=== PATIENT | male | born 1940 | race Caucasian/White ===

== ENCOUNTER 2017-03-22 10:38 | Inpatient (IN) | payer OTHER, MEDICARE, BC ==
[~2017-03-22] VITALS: Ht 177.8 cm; Wt 69.3 kg
[~2017-03-22 10:38] MED LIST: ASPI-1265 PO; COU5T PO; ENAL2.5T40 PO; METF500T PO; METF500T4 PO; NOR5T PO; PRAV40TA65 PO; WARF5TAB7 PO
[2017-03-22 11:19] LABS: BASOPHILS % (AUTO) 0.3 % (0-1); EOSINOPHILS # (AUTO) 0.3 X10'3 (0-0.9); EOSINOPHILS % (AUTO) 3.3 % (0-6); HEMATOCRIT 41.6 % (42.0-52.0); HEMOGLOBIN 13.8 g/dl (14.0-17.9); LYMPHOCYTES # (AUTO) 0.6 X10'3 (1.1-4.8); LYMPHOCYTES % (AUTO) 7.4 % (21-51); MEAN CORPUSCULAR HEMOGLOBIN 30.6 PG (27.0-31.0); MEAN CORPUSCULAR HGB CONC 33.1 % (33.0-36.5); MEAN CORPUSCULAR VOLUME 92.3 FL (78-98); MEAN PLATELET VOLUME 9.1 FL (7.4-10.4); MONOCYTES # (AUTO) 0.6 X10'3 (0-0.9); MONOCYTES % (AUTO) 6.7 % (2-12); NEUTROPHILS # (AUTO) 6.9 X10'3 (1.8-7.7); NEUTROPHILS % (AUTO) 82.3 % (42-75); PLATELET COUNT 203 X10'3 (140-440); RED BLOOD COUNT 4.51 X10'6 (4.70-6.10); RED CELL DISTRIBUTION WIDTH 16.5 % (11.5-14.5); WHITE BLOOD COUNT 8.4 X10'3 (4.5-11.0)
[2017-03-22 11:29] LABS: INR 1.6 INR; PARTIAL THROMBOPLASTIN TIME 27 SECONDS (22-32); PROTHROMBIN TIME 16.3 SECONDS (9.0-12.0)
[2017-03-22 11:34] LABS: ALANINE AMINOTRANSFERASE 47 U/L (12-78); ALBUMIN 3.7 G/DL (3.4-5.0); ALBUMIN/GLOBULIN RATIO 0.9 (1.1-1.5); ALKALINE PHOSPHATASE 75 IU/L (46-116); ANION GAP 10 (8-16); ASPARTATE AMINO TRANSFERASE 30 U/L (10-37); BILIRUBIN,TOTAL 0.8 MG/DL (0.1-1.0); BLOOD UREA NITROGEN 67 MG/DL (7-18); BUN/CREATININE RATIO 23.1 (5.4-32.0); CALCIUM 9.5 MG/DL (8.5-10.1); CHLORIDE 107 MMOL/L (99-107); GLUCOSE 120 MG/DL (70-104); POTASSIUM 4.5 MMOL/L (3.5-5.1); SODIUM 143 MMOL/L (135-145); TOTAL CARBON DIOXIDE 26.3 MMOL/L (24-32); TOTAL PROTEIN 7.6 G/DL (6.4-8.2); eGFR 21 ML/MIN
[2017-03-22 12:23] LABS: CLARITY,URINE CLEAR (Clear); COLOR,URINE STRAW (Yellow); GLUCOSE, URINE NEGATIVE (Neg); KETONES,URINE NEGATIVE (Neg); LEUKOCYTE ESTERASE ,URINE NEGATIVE (Neg); NITRITES, URINE NEGATIVE (Neg); OCCULT BLOOD,URINE SMALL (Neg); PROTEIN,URINE TRACE mg/dl (Neg); UROBILINOGEN,URINE 0.2 E.U/dL (0.2-1.0)
[2017-03-22 12:25] LABS: UA COLLECTION TYPE URINAL
[2017-03-22] MEDS ORDERED: heparin 10,000 units/1 ML INJ IV ONE (12:25)
[2017-03-22] MEDS ORDERED: aspirin 81mg tab.chew PO ONE (12:25)
[2017-03-22 12:37] LABS: BACTERIA,URINE FEW /HPF (Neg); RBC,URINE 0-2 /HPF (0-2); SQUAMOUS EPITHELIAL CELL,UR FEW /LPF (FEW); WBC,URINE 0-4 /HPF (0-4)
[2017-03-22 12:38] LABS: MUCUS STRANDS FEW /LPF (Neg)
[2017-03-22] MEDS ORDERED: hydrALAZINE 20mg/ml inj. IV ONE (13:05)
[2017-03-22 13:06] LABS: CHOL/HDL RATIO 2.7 (0.00-4.99); CHOLESTEROL 111 MG/DL (0-200); HDL CHOLESTEROL 41 MG/DL (35-60); LDL CHOLESTEROL 55 MG/DL (50-100); MAGNESIUM 1.9 MG/DL (1.5-2.4); TRIGLYCERIDES 177 MG/DL (20-135)
[2017-03-22 14:33] LABS: OCCULT BLOOD STOOL NEGATIVE (Neg)
[2017-03-22] MEDS ORDERED: sodium bicarbonate (8.4%) inj. 50 MEQ in sodium chloride 0.45% 950 ML IV SCH (15:01)
[2017-03-22] MEDS ORDERED: dextrose ORAL solution 15 GM/59 ML bottle PO PRN ×2 (15:05)
[2017-03-22] MEDS ORDERED: mag hydrox/Alum hydrox/simeth 30ml oral suspension PO PRN (15:05)
[2017-03-22] MEDS ORDERED: magnesium Cl slow-release 64mg tablet PO PRN (15:05)
[2017-03-22] MEDS ORDERED: ondansetron/PF 4mg/2ml inj IV PRN (15:05)
[2017-03-22] MEDS ORDERED: morphine 2 MG/ML inj. syringe IV PRN ×2 (15:05)
[2017-03-22] MEDS ORDERED: potassium Cl 20 mEq SR tablet PO PRN ×2 (15:05)
[2017-03-22] MEDS ORDERED: acetaminophen 325mg tablet PO PRN (15:05)
[2017-03-22] MEDS ORDERED: dextrose 50%-water 50ml dispensing syringe IV PRN ×2 (15:05)
[2017-03-22] MEDS ORDERED: magnesium 4gm in 100ml NS 100 ML IV PRN (15:05)
[2017-03-22] MEDS ORDERED: magnesium 2GM in 50ml NS 50 ML IV PRN (15:05)
[2017-03-22] MEDS ORDERED: acetylcysteine 200 MG/ml 4ml vial PO SCH (15:05)
[2017-03-22] MEDS ORDERED: insulin Lispro (HumaLOG) vial - multi-dose SQ SCH (15:05)
[2017-03-22] MEDS ORDERED: magnesium hydroxide 30ml (MOM) UD suspension PO PRN (15:05)
[2017-03-22] MEDS ORDERED: glucagon, human recombinant 1mg kit SUBCUT PRN (15:05)
[2017-03-22] MEDS ORDERED: MESSAGE TO PHARMACY PO ONE (15:05)
[2017-03-22] MEDS ORDERED: potassium Cl 40MEQ/NS 500ml 500 ML IV PRN ×2 (15:05)
[2017-03-22 15:49] LABS: HEMOGLOBIN A1C 6.3 % (4.5-6.2)
[2017-03-22] MEDS ORDERED: FURO40TA4 (17:13)
[2017-03-22] MEDS ORDERED: PRAV20TA4 (17:13)
[2017-03-22] MEDS ORDERED: SPIR25TA3 (17:13)
[2017-03-22] MEDS ORDERED: LISI10TA4 (17:13)
[2017-03-22] MEDS ORDERED: CARV3.123 (17:13)
[2017-03-22] MEDS: tirofiban 5mg in NS 100mL 100 ML IV SCH (17:24)
[2017-03-22] MEDS ORDERED: furosemide 40mg/4ml inj IV ONE (17:55)
[2017-03-22] MEDS: sodium bicarbonate (8.4%) inj. 50 MEQ in sodium chloride 0.45% 1,000 ML IV SCH (18:30)
[2017-03-22 19:00] VITALS: BP 177/107
[2017-03-22] MEDS: DOBUTamine-DoBUTrex 500mg/D5W 250 ML IV SCH (19:02)
[2017-03-22 20:00] VITALS: BP 190/73
[2017-03-22] MEDS ORDERED: heparin 10,000 units/1 ML INJ IV PRN (20:25)
[2017-03-22 21:00] VITALS: BP 141/43
[2017-03-22] MEDS: insulin glargine (Lantus) pen - multi-dose SQ SCH (21:00)
[2017-03-22] MEDS ORDERED: temazepam 15mg capsule PO PRN (21:00)
[2017-03-22] MEDS: furosemide 40mg/4ml inj IV SCH (21:02)
[2017-03-22] MEDS: carVEDilol 3.125mg tablet PO SCH (21:02)
[2017-03-22 22:00] VITALS: BP 133/65
[2017-03-22 23:00] VITALS: BP 114/101
[2017-03-23] VITALS (17 sets, daily range): BP systolic 104–169; BP diastolic 46–98
[2017-03-23] MEDS: tirofiban 5mg in NS 100mL 100 ML IV SCH ×3 (01:04→16:52)
[2017-03-23 03:49] LABS: INR 1.3 INR; PARTIAL THROMBOPLASTIN TIME 53 SECONDS (22-32); PROTHROMBIN TIME 13.8 SECONDS (9.0-12.0)
[2017-03-23 06:18] LABS: BASOPHILS # (AUTO) 0.1 X10'3 (0-0.2); BASOPHILS % (AUTO) 0.8 % (0-1); EOSINOPHILS # (AUTO) 0.1 X10'3 (0-0.9); EOSINOPHILS % (AUTO) 1.6 % (0-6); HEMATOCRIT 42.2 % (42.0-52.0); HEMOGLOBIN 14.2 g/dl (14.0-17.9); LYMPHOCYTES # (AUTO) 0.8 X10'3 (1.1-4.8); LYMPHOCYTES % (AUTO) 8.5 % (21-51); MEAN CORPUSCULAR HEMOGLOBIN 30.7 PG (27.0-31.0); MEAN CORPUSCULAR HGB CONC 33.7 % (33.0-36.5); MEAN CORPUSCULAR VOLUME 91.2 FL (78-98); MEAN PLATELET VOLUME 11.1 FL (7.4-10.4); MONOCYTES # (AUTO) 0.9 X10'3 (0-0.9); MONOCYTES % (AUTO) 9.8 % (2-12); NEUTROPHILS # (AUTO) 7.2 X10'3 (1.8-7.7); NEUTROPHILS % (AUTO) 79.3 % (42-75); PLATELET COUNT 180 X10'3 (140-440); RED BLOOD COUNT 4.63 X10'6 (4.70-6.10); RED CELL DISTRIBUTION WIDTH 15.7 % (11.5-14.5); WHITE BLOOD COUNT 9.1 X10'3 (4.5-11.0)
[2017-03-23] MEDS: furosemide 40mg/4ml inj IV SCH ×2 (07:45→22:27)
[2017-03-23] MEDS: lisinopril 2.5mg tablet PO SCH (07:45)
[2017-03-23] MEDS: pravastatin 40mg tablet PO SCH (07:46)
[2017-03-23] MEDS: aspirin 325mg tablet PO SCH (07:46)
[2017-03-23] MEDS: carVEDilol 3.125mg tablet PO SCH ×2 (07:46→22:27)
[2017-03-23] MEDS: K and/or MAG REPLACEMENT MC SCH (08:00)
[2017-03-23 08:33] LABS: ALANINE AMINOTRANSFERASE 41 U/L (12-78); ALBUMIN 3.6 G/DL (3.4-5.0); ALBUMIN/GLOBULIN RATIO 0.9 (1.1-1.5); ALKALINE PHOSPHATASE 73 IU/L (46-116); ANION GAP 11 (8-16); ASPARTATE AMINO TRANSFERASE 36 U/L (10-37); BILIRUBIN,TOTAL 1.2 MG/DL (0.1-1.0); BLOOD UREA NITROGEN 67 MG/DL (7-18); BUN/CREATININE RATIO 25.8 (5.4-32.0); CALCIUM 9.8 MG/DL (8.5-10.1); CHLORIDE 105 MMOL/L (99-107); CHOL/HDL RATIO 3.2 (0.00-4.99); CHOLESTEROL 127 MG/DL (0-200); GLUCOSE 128 MG/DL (70-104); HDL CHOLESTEROL 40 MG/DL (35-60); LDL CHOLESTEROL 68 MG/DL (50-100); POTASSIUM 5.4 MMOL/L (3.5-5.1); SODIUM 143 MMOL/L (135-145); TOTAL CARBON DIOXIDE 26.6 MMOL/L (24-32); TOTAL PROTEIN 7.5 G/DL (6.4-8.2); TRIGLYCERIDES 130 MG/DL (20-135); eGFR 24 ML/MIN
[2017-03-23] MEDS ORDERED: pneumococcal 23-VAL P-sac vacc 25 mcg/0.5ml vial IMVAC ONE (10:00)
[2017-03-23] MEDS: sodium bicarbonate (8.4%) inj. 50 MEQ in sodium chloride 0.45% 1,000 ML IV SCH (14:55)
[2017-03-23] MEDS: insulin glargine (Lantus) pen - multi-dose SQ SCH (21:00)
[2017-03-24] VITALS (25 sets, daily range): BP systolic 114–201; BP diastolic 47–93
[2017-03-24 00:02] LABS: PARTIAL THROMBOPLASTIN TIME 57 SECONDS (22-32)
[2017-03-24] MEDS: tirofiban 5mg in NS 100mL 100 ML IV SCH ×4 (02:12→17:09)
[2017-03-24 05:26] LABS: BASOPHILS % (AUTO) 0.3 % (0-1); EOSINOPHILS # (AUTO) 0.4 X10'3 (0-0.9); HEMATOCRIT 37.8 % (42.0-52.0); HEMOGLOBIN 12.5 g/dl (14.0-17.9); LYMPHOCYTES # (AUTO) 0.9 X10'3 (1.1-4.8); LYMPHOCYTES % (AUTO) 10.2 % (21-51); MEAN CORPUSCULAR HEMOGLOBIN 30.2 PG (27.0-31.0); MEAN CORPUSCULAR HGB CONC 32.9 % (33.0-36.5); MEAN CORPUSCULAR VOLUME 91.7 FL (78-98); MEAN PLATELET VOLUME 9.3 FL (7.4-10.4); MONOCYTES # (AUTO) 0.7 X10'3 (0-0.9); MONOCYTES % (AUTO) 8.8 % (2-12); NEUTROPHILS # (AUTO) 6.4 X10'3 (1.8-7.7); NEUTROPHILS % (AUTO) 75.7 % (42-75); PLATELET COUNT 195 X10'3 (140-440); RED BLOOD COUNT 4.12 X10'6 (4.70-6.10); RED CELL DISTRIBUTION WIDTH 16.1 % (11.5-14.5); WHITE BLOOD COUNT 8.4 X10'3 (4.5-11.0)
[2017-03-24 06:04] LABS: INR 1.2 INR; PARTIAL THROMBOPLASTIN TIME 60 SECONDS (22-32); PROTHROMBIN TIME 12.4 SECONDS (9.0-12.0)
[2017-03-24 06:14] LABS: ALANINE AMINOTRANSFERASE 27 U/L (12-78); ALBUMIN/GLOBULIN RATIO 0.9 (1.1-1.5); ALKALINE PHOSPHATASE 63 IU/L (46-116); ANION GAP 11 (8-16); ASPARTATE AMINO TRANSFERASE 21 U/L (10-37); BLOOD UREA NITROGEN 64 MG/DL (7-18); BUN/CREATININE RATIO 22.1 (5.4-32.0); CALCIUM 9.2 MG/DL (8.5-10.1); CHLORIDE 104 MMOL/L (99-107); GLUCOSE 134 MG/DL (70-104); MAGNESIUM 1.8 MG/DL (1.5-2.4); POTASSIUM 4.3 MMOL/L (3.5-5.1); SODIUM 140 MMOL/L (135-145); TOTAL CARBON DIOXIDE 25.4 MMOL/L (24-32); TOTAL PROTEIN 6.4 G/DL (6.4-8.2); eGFR 21 ML/MIN
[2017-03-24] MEDS: carVEDilol 3.125mg tablet PO SCH (07:19)
[2017-03-24] MEDS: aspirin 325mg tablet PO SCH (07:19)
[2017-03-24] MEDS: DOBUTamine-DoBUTrex 500mg/D5W 250 ML IV SCH (07:19)
[2017-03-24] MEDS: lisinopril 2.5mg tablet PO SCH (07:19)
[2017-03-24] MEDS: pravastatin 40mg tablet PO SCH (07:19)
[2017-03-24] MEDS: furosemide 40mg/4ml inj IV SCH ×2 (07:20→19:08)
[2017-03-24] MEDS: K and/or MAG REPLACEMENT MC SCH (07:20)
[2017-03-24] MEDS ORDERED: fentaNYL/PF 50MCG/1 ML 2ML syringe ONE (09:02)
[2017-03-24] MEDS ORDERED: heparin 1,000unit/ml 10ml vial 10 ML ONE (09:02)
[2017-03-24] MEDS ORDERED: LIDOcaine 1%/PF (10mg/ml) 5ml vial ONE (09:02)
[2017-03-24] MEDS ORDERED: midazolam 2 mg/2 ml injection ONE (09:02)
[2017-03-24] MEDS ORDERED: nitroGLYCERIN-Tridil 50MG/D5W 250 ML IV ONE (09:02)
[2017-03-24] MEDS ORDERED: iohexol 350MG/ML 100ml bottle IV ONE ×2 (09:02→10:02)
[2017-03-24] MEDS ORDERED: iohexol 350 MG/ML 50ML vial IV ONE (09:02)
[2017-03-24] MEDS ORDERED: pneumococcal 23-VAL P-sac vacc 25 mcg/0.5ml vial IMVAC ONE (10:00)
[2017-03-24] MEDS ORDERED: heparin 1,000 UNITS/NS 500ml 500 ML ONE (10:24)
[2017-03-24] MEDS ORDERED: atropine 0.1mg/ml 10ml syringe ONE (10:40)
[2017-03-24] MEDS ORDERED: clopidogrel 300mg tablet ONE (11:07)
[2017-03-24 11:36] LABS: ISTAT HGB ART 13.3 g/dl (14.0-18.0); ISTAT Hct ART 39 %PCV (42-52); ISTAT O2 SATURATION ARTERIAL 95 % (95-98); ISTAT SOURCE ART
[2017-03-24 11:36] LABS: ISTAT Hct MIX 39 %PCV (42-52); ISTAT O2 SATURATION MIX VENOUS 64 % (60-80); ISTAT SOURCE MIX
[2017-03-24] MEDS: hydrALAZINE 20mg/ml inj. IV PRN (12:05)
[2017-03-24] MEDS ORDERED: lisinopril 10 MG tablet PO SCH (12:22)
[2017-03-24] MEDS: sodium bicarbonate (8.4%) inj. 50 MEQ in sodium chloride 0.45% 1,000 ML IV SCH (12:43)
[2017-03-24 16:13] LABS: CHOL/HDL RATIO 2.8 (0.00-4.99); CHOLESTEROL 103 MG/DL (0-200); HDL CHOLESTEROL 37 MG/DL (35-60); LDL CHOLESTEROL 52 MG/DL (50-100); TRIGLYCERIDES 125 MG/DL (20-135)
[2017-03-24] MEDS: carVEDilol 12.5mg tablet PO SCH (19:08)
[2017-03-24] MEDS ORDERED: atorvastatin 20mg tablet PO SCH (21:00)
[2017-03-24] MEDS: insulin glargine (Lantus) pen - multi-dose SQ SCH (21:00)
[2017-03-25] VITALS (24 sets, daily range): BP systolic 119–166; BP diastolic 53–86
[2017-03-25] MEDS: hydrALAZINE 20mg/ml inj. IV PRN ×2 (03:02→17:02)
[2017-03-25 05:43] LABS: BASOPHILS # (AUTO) 0.1 X10'3 (0-0.2); BASOPHILS % (AUTO) 0.6 % (0-1); EOSINOPHILS # (AUTO) 0.3 X10'3 (0-0.9); EOSINOPHILS % (AUTO) 3.3 % (0-6); HEMATOCRIT 37.4 % (42.0-52.0); HEMOGLOBIN 12.4 g/dl (14.0-17.9); LYMPHOCYTES # (AUTO) 0.6 X10'3 (1.1-4.8); MEAN CORPUSCULAR HEMOGLOBIN 30.5 PG (27.0-31.0); MEAN CORPUSCULAR HGB CONC 33.2 % (33.0-36.5); MEAN PLATELET VOLUME 9.5 FL (7.4-10.4); MONOCYTES # (AUTO) 0.7 X10'3 (0-0.9); NEUTROPHILS # (AUTO) 6.6 X10'3 (1.8-7.7); NEUTROPHILS % (AUTO) 80.1 % (42-75); PLATELET COUNT 200 X10'3 (140-440); RED BLOOD COUNT 4.06 X10'6 (4.70-6.10); RED CELL DISTRIBUTION WIDTH 16.5 % (11.5-14.5); WHITE BLOOD COUNT 8.2 X10'3 (4.5-11.0)
[2017-03-25 05:50] LABS: INR 1.1 INR; PARTIAL THROMBOPLASTIN TIME 26 SECONDS (22-32); PROTHROMBIN TIME 11.6 SECONDS (9.0-12.0)
[2017-03-25 05:57] LABS: ALANINE AMINOTRANSFERASE 30 U/L (12-78); ALBUMIN 3.2 G/DL (3.4-5.0); ALBUMIN/GLOBULIN RATIO 0.9 (1.1-1.5); ALKALINE PHOSPHATASE 66 IU/L (46-116); ANION GAP 12 (8-16); ASPARTATE AMINO TRANSFERASE 90 U/L (10-37); BILIRUBIN,TOTAL 1.2 MG/DL (0.1-1.0); BLOOD UREA NITROGEN 54 MG/DL (7-18); BUN/CREATININE RATIO 22.5 (5.4-32.0); CALCIUM 9.5 MG/DL (8.5-10.1); CHLORIDE 101 MMOL/L (99-107); GLUCOSE 146 MG/DL (70-104); MAGNESIUM 1.8 MG/DL (1.5-2.4); POTASSIUM 3.9 MMOL/L (3.5-5.1); SODIUM 140 MMOL/L (135-145); TOTAL CARBON DIOXIDE 26.7 MMOL/L (24-32); TOTAL PROTEIN 6.7 G/DL (6.4-8.2); eGFR 26 ML/MIN
[2017-03-25] MEDS: K and/or MAG REPLACEMENT MC SCH (06:49)
[2017-03-25] MEDS: carVEDilol 12.5mg tablet PO SCH ×2 (08:00→19:19)
[2017-03-25] MEDS: sacubitril/valsartan 24mg-26mg tablet PO SCH ×2 (08:00→19:20)
[2017-03-25] MEDS: furosemide 40mg/4ml inj IV SCH ×2 (08:22→19:19)
[2017-03-25] MEDS: aspirin 325mg tablet PO SCH (08:27)
[2017-03-25] MEDS: clopidogrel 75mg tablet PO SCH (08:27)
[2017-03-25] MEDS: apixaban 2.5mg tablet PO SCH ×2 (08:27→19:19)
[2017-03-25] MEDS: atorvastatin 20mg tablet PO SCH (08:27)
[2017-03-25] MEDS: sodium bicarbonate (8.4%) inj. 50 MEQ in sodium chloride 0.45% 1,000 ML IV SCH (08:29)
[2017-03-25] MEDS ORDERED: pneumococcal 23-VAL P-sac vacc 25 mcg/0.5ml vial IMVAC ONE (11:00)
[2017-03-25] MEDS: insulin glargine (Lantus) pen - multi-dose SQ SCH (21:00)
[2017-03-26] VITALS (14 sets, daily range): BP systolic 82–153; BP diastolic 46–95
[2017-03-26] MEDS: DOBUTamine-DoBUTrex 500mg/D5W 250 ML IV SCH (01:37)
[2017-03-26 05:34] LABS: BASOPHILS % (AUTO) 0.2 % (0-1); EOSINOPHILS # (AUTO) 0.3 X10'3 (0-0.9); EOSINOPHILS % (AUTO) 3.5 % (0-6); HEMOGLOBIN 12.4 g/dl (14.0-17.9); LYMPHOCYTES # (AUTO) 0.6 X10'3 (1.1-4.8); LYMPHOCYTES % (AUTO) 6.2 % (21-51); MEAN CORPUSCULAR HGB CONC 33.4 % (33.0-36.5); MEAN CORPUSCULAR VOLUME 92.8 FL (78-98); MEAN PLATELET VOLUME 9.6 FL (7.4-10.4); MONOCYTES # (AUTO) 1.2 X10'3 (0-0.9); MONOCYTES % (AUTO) 12.8 % (2-12); NEUTROPHILS # (AUTO) 7.2 X10'3 (1.8-7.7); NEUTROPHILS % (AUTO) 77.3 % (42-75); PLATELET COUNT 195 X10'3 (140-440); RED BLOOD COUNT 3.98 X10'6 (4.70-6.10); RED CELL DISTRIBUTION WIDTH 16.2 % (11.5-14.5); WHITE BLOOD COUNT 9.3 X10'3 (4.5-11.0)
[2017-03-26 05:52] LABS: ALANINE AMINOTRANSFERASE 33 U/L (12-78); ALBUMIN/GLOBULIN RATIO 0.9 (1.1-1.5); ALKALINE PHOSPHATASE 66 IU/L (46-116); ANION GAP 10 (8-16); ASPARTATE AMINO TRANSFERASE 64 U/L (10-37); BILIRUBIN,TOTAL 1.2 MG/DL (0.1-1.0); BLOOD UREA NITROGEN 57 MG/DL (7-18); CALCIUM 8.9 MG/DL (8.5-10.1); CHLORIDE 101 MMOL/L (99-107); GLUCOSE 147 MG/DL (70-104); MAGNESIUM 2.1 MG/DL (1.5-2.4); POTASSIUM 3.9 MMOL/L (3.5-5.1); SODIUM 139 MMOL/L (135-145); TOTAL CARBON DIOXIDE 28.5 MMOL/L (24-32); TOTAL PROTEIN 6.5 G/DL (6.4-8.2); eGFR 20 ML/MIN
[2017-03-26 05:55] LABS: INR 1.1 INR; PROTHROMBIN TIME 11.8 SECONDS (9.0-12.0)
[2017-03-26] MEDS: sacubitril/valsartan 24mg-26mg tablet PO SCH ×2 (07:59→18:52)
[2017-03-26] MEDS: clopidogrel 75mg tablet PO SCH (07:59)
[2017-03-26] MEDS: carVEDilol 12.5mg tablet PO SCH ×2 (07:59→18:52)
[2017-03-26] MEDS: furosemide 40mg/4ml inj IV SCH (07:59)
[2017-03-26] MEDS: apixaban 2.5mg tablet PO SCH (07:59)
[2017-03-26] MEDS: aspirin 81mg tab.chew PO SCH (07:59)
[2017-03-26] MEDS: atorvastatin 20mg tablet PO SCH (07:59)
[2017-03-26] MEDS: K and/or MAG REPLACEMENT MC SCH (08:00)
[2017-03-26] MEDS: apixaban 5mg tablet PO SCH (18:52)
[2017-03-26] MEDS: insulin glargine (Lantus) pen - multi-dose SQ SCH (21:00)
[2017-03-27] VITALS (12 sets, daily range): BP systolic 111–155; BP diastolic 37–81
[2017-03-27 02:09] LABS: BASOPHILS % (AUTO) 0.6 % (0-1); EOSINOPHILS # (AUTO) 0.3 X10'3 (0-0.9); HEMOGLOBIN 11.4 g/dl (14.0-17.9); LYMPHOCYTES # (AUTO) 0.6 X10'3 (1.1-4.8); LYMPHOCYTES % (AUTO) 8.6 % (21-51); MEAN CORPUSCULAR HEMOGLOBIN 30.7 PG (27.0-31.0); MEAN CORPUSCULAR HGB CONC 32.6 % (33.0-36.5); MEAN CORPUSCULAR VOLUME 93.9 FL (78-98); MEAN PLATELET VOLUME 9.1 FL (7.4-10.4); MONOCYTES # (AUTO) 0.9 X10'3 (0-0.9); MONOCYTES % (AUTO) 12.7 % (2-12); NEUTROPHILS # (AUTO) 5.5 X10'3 (1.8-7.7); NEUTROPHILS % (AUTO) 74.1 % (42-75); PLATELET COUNT 191 X10'3 (140-440); RED BLOOD COUNT 3.73 X10'6 (4.70-6.10); RED CELL DISTRIBUTION WIDTH 16.4 % (11.5-14.5); WHITE BLOOD COUNT 7.4 X10'3 (4.5-11.0)
[2017-03-27 02:22] LABS: INR 1.2 INR
[2017-03-27 02:31] LABS: ALANINE AMINOTRANSFERASE 30 U/L (12-78); ALBUMIN 2.8 G/DL (3.4-5.0); ALBUMIN/GLOBULIN RATIO 0.8 (1.1-1.5); ALKALINE PHOSPHATASE 58 IU/L (46-116); ANION GAP 8 (8-16); ASPARTATE AMINO TRANSFERASE 36 U/L (10-37); BILIRUBIN,TOTAL 1.3 MG/DL (0.1-1.0); BLOOD UREA NITROGEN 67 MG/DL (7-18); BUN/CREATININE RATIO 19.1 (5.4-32.0); CALCIUM 8.7 MG/DL (8.5-10.1); CHLORIDE 101 MMOL/L (99-107); GLUCOSE 156 MG/DL (70-104); MAGNESIUM 2.3 MG/DL (1.5-2.4); POTASSIUM 4.1 MMOL/L (3.5-5.1); SODIUM 137 MMOL/L (135-145); TOTAL PROTEIN 6.2 G/DL (6.4-8.2); eGFR 17 ML/MIN
[2017-03-27] MEDS: K and/or MAG REPLACEMENT MC SCH (06:33)
[2017-03-27] MEDS: atorvastatin 20mg tablet PO SCH (07:36)
[2017-03-27] MEDS: apixaban 5mg tablet PO SCH ×2 (07:37→20:05)
[2017-03-27] MEDS: carVEDilol 12.5mg tablet PO SCH (07:37)
[2017-03-27] MEDS: aspirin 81mg tab.chew PO SCH (07:37)
[2017-03-27] MEDS: clopidogrel 75mg tablet PO SCH (07:37)
[2017-03-27] MEDS: sacubitril/valsartan 24mg-26mg tablet PO SCH ×2 (07:37→20:05)
[2017-03-27] MEDS: DOBUTamine-DoBUTrex 500mg/D5W 250 ML IV SCH ×2 (17:37→20:31)
[2017-03-27] MEDS: carvedilol 6.25mg tablet PO SCH (20:05)
[2017-03-27] MEDS ORDERED: normal saline 1000ml 1,000 ML IV ONE (20:10)
[2017-03-27] MEDS: insulin glargine (Lantus) pen - multi-dose SQ SCH (21:00)
[2017-03-28] VITALS (12 sets, daily range): BP systolic 116–146; BP diastolic 59–84
[2017-03-28 05:25] LABS: BASOPHILS % (AUTO) 0.5 % (0-1); EOSINOPHILS # (AUTO) 0.5 X10'3 (0-0.9); EOSINOPHILS % (AUTO) 6.6 % (0-6); HEMATOCRIT 32.1 % (42.0-52.0); HEMOGLOBIN 10.9 g/dl (14.0-17.9); LYMPHOCYTES # (AUTO) 0.5 X10'3 (1.1-4.8); LYMPHOCYTES % (AUTO) 7.7 % (21-51); MEAN CORPUSCULAR HEMOGLOBIN 31.1 PG (27.0-31.0); MEAN CORPUSCULAR HGB CONC 33.9 % (33.0-36.5); MEAN CORPUSCULAR VOLUME 91.9 FL (78-98); MEAN PLATELET VOLUME 9.2 FL (7.4-10.4); MONOCYTES # (AUTO) 0.7 X10'3 (0-0.9); MONOCYTES % (AUTO) 10.7 % (2-12); NEUTROPHILS # (AUTO) 5.1 X10'3 (1.8-7.7); NEUTROPHILS % (AUTO) 74.5 % (42-75); PLATELET COUNT 178 X10'3 (140-440); RED BLOOD COUNT 3.49 X10'6 (4.70-6.10); WHITE BLOOD COUNT 6.8 X10'3 (4.5-11.0)
[2017-03-28 05:43] LABS: ALANINE AMINOTRANSFERASE 26 U/L (12-78); ALBUMIN 2.6 G/DL (3.4-5.0); ALBUMIN/GLOBULIN RATIO 0.8 (1.1-1.5); ALKALINE PHOSPHATASE 53 IU/L (46-116); ANION GAP 11 (8-16); ASPARTATE AMINO TRANSFERASE 20 U/L (10-37); BILIRUBIN,TOTAL 0.7 MG/DL (0.1-1.0); BLOOD UREA NITROGEN 70 MG/DL (7-18); CALCIUM 8.1 MG/DL (8.5-10.1); CHLORIDE 105 MMOL/L (99-107); GLUCOSE 131 MG/DL (70-104); MAGNESIUM 2.2 MG/DL (1.5-2.4); POTASSIUM 3.8 MMOL/L (3.5-5.1); SODIUM 140 MMOL/L (135-145); TOTAL CARBON DIOXIDE 24.2 MMOL/L (24-32); TOTAL PROTEIN 5.7 G/DL (6.4-8.2); eGFR 22 ML/MIN
[2017-03-28] MEDS: carvedilol 6.25mg tablet PO SCH ×2 (07:34→19:43)
[2017-03-28] MEDS: clopidogrel 75mg tablet PO SCH (07:34)
[2017-03-28] MEDS: sacubitril/valsartan 24mg-26mg tablet PO SCH ×2 (07:34→19:45)
[2017-03-28] MEDS: apixaban 5mg tablet PO SCH ×2 (07:34→19:42)
[2017-03-28] MEDS: atorvastatin 20mg tablet PO SCH (07:34)
[2017-03-28] MEDS: aspirin 81mg tab.chew PO SCH (07:34)
[2017-03-28] MEDS: K and/or MAG REPLACEMENT MC SCH (08:00)
[2017-03-28] MEDS: DOBUTamine-DoBUTrex 500mg/D5W 250 ML IV SCH ×2 (19:45→22:18)
[2017-03-28] MEDS: insulin glargine (Lantus) pen - multi-dose SQ SCH (21:00)
[2017-03-29] VITALS (16 sets, daily range): BP systolic 101–169; BP diastolic 41–90
[2017-03-29] MEDS: hydrALAZINE 20mg/ml inj. IV PRN (02:45)
[2017-03-29 05:24] LABS: MAGNESIUM 2.2 MG/DL (1.5-2.4)
[2017-03-29] MEDS: K and/or MAG REPLACEMENT MC SCH (08:00)
[2017-03-29 08:09] LABS: ANION GAP 11 (8-16); BLOOD UREA NITROGEN 65 MG/DL (7-18); CALCIUM 8.9 MG/DL (8.5-10.1); CHLORIDE 105 MMOL/L (99-107); GLUCOSE 125 MG/DL (70-104); POTASSIUM 4.6 MMOL/L (3.5-5.1); SODIUM 140 MMOL/L (135-145); TOTAL CARBON DIOXIDE 24.4 MMOL/L (24-32); eGFR 25 ML/MIN
[2017-03-29] MEDS: atorvastatin 20mg tablet PO SCH (08:15)
[2017-03-29] MEDS: carvedilol 6.25mg tablet PO SCH ×2 (08:15→20:59)
[2017-03-29] MEDS: clopidogrel 75mg tablet PO SCH (08:16)
[2017-03-29] MEDS: apixaban 5mg tablet PO SCH ×2 (08:16→20:59)
[2017-03-29] MEDS: sacubitril/valsartan 24mg-26mg tablet PO SCH ×2 (08:16→20:59)
[2017-03-29] MEDS: aspirin 81mg tab.chew PO SCH (08:16)
[2017-03-29] MEDS: insulin glargine (Lantus) pen - multi-dose SQ SCH (21:00)
[2017-03-29] MEDS: DOBUTamine-DoBUTrex 500mg/D5W 250 ML IV SCH ×2 (21:53→22:45)
[2017-03-30] VITALS (16 sets, daily range): BP systolic 101–182; BP diastolic 44–90
[2017-03-30 06:04] LABS: ALBUMIN 2.9 G/DL (3.4-5.0); ANION GAP 10 (8-16); BLOOD UREA NITROGEN 59 MG/DL (7-18); BUN/CREATININE RATIO 25.7 (5.4-32.0); CHLORIDE 106 MMOL/L (99-107); GLUCOSE 132 MG/DL (70-104); POTASSIUM 4.5 MMOL/L (3.5-5.1); SODIUM 139 MMOL/L (135-145); eGFR 28 ML/MIN
[2017-03-30] MEDS: carvedilol 6.25mg tablet PO SCH (08:00)
[2017-03-30] MEDS: K and/or MAG REPLACEMENT MC SCH (08:00)
[2017-03-30] MEDS: atorvastatin 20mg tablet PO SCH (09:24)
[2017-03-30] MEDS: apixaban 5mg tablet PO SCH ×2 (09:24→20:58)
[2017-03-30] MEDS: sacubitril/valsartan 24mg-26mg tablet PO SCH ×2 (09:24→20:58)
[2017-03-30] MEDS: aspirin 81mg tab.chew PO SCH (09:24)
[2017-03-30] MEDS: clopidogrel 75mg tablet PO SCH (09:25)
[2017-03-30] MEDS ORDERED: lisinopril 20mg tablet PO SCH (12:05)
[2017-03-30] MEDS ORDERED: hydrALAZINE 20mg/ml inj. IV PRN (16:35)
[2017-03-30] MEDS ORDERED: sacubitril/valsartan 24mg-26mg tablet PO SCH (20:00)
[2017-03-30] MEDS: carVEDilol 3.125mg tablet PO SCH (20:59)
[2017-03-30] MEDS: insulin glargine (Lantus) pen - multi-dose SQ SCH (21:00)
[2017-03-30] MEDS: DOBUTamine-DoBUTrex 500mg/D5W 250 ML IV SCH (22:28)
[2017-03-31] VITALS (13 sets, daily range): BP systolic 109–193; BP diastolic 37–80
[2017-03-31 05:14] LABS: HEMATOCRIT 38.6 % (42.0-52.0); HEMOGLOBIN 12.9 g/dl (14.0-17.9); MEAN CORPUSCULAR HEMOGLOBIN 31.4 PG (27.0-31.0); MEAN CORPUSCULAR HGB CONC 33.4 % (33.0-36.5); MEAN CORPUSCULAR VOLUME 94.1 FL (78-98); PLATELET COUNT 236 X10'3 (140-440); RED CELL DISTRIBUTION WIDTH 15.6 % (11.5-14.5); WHITE BLOOD COUNT 6.9 X10'3 (4.5-11.0)
[2017-03-31 05:46] LABS: ALBUMIN 3.2 G/DL (3.4-5.0); ANION GAP 12 (8-16); BLOOD UREA NITROGEN 61 MG/DL (7-18); BUN/CREATININE RATIO 26.5 (5.4-32.0); CHLORIDE 104 MMOL/L (99-107); GLUCOSE 160 MG/DL (70-104); POTASSIUM 4.6 MMOL/L (3.5-5.1); SODIUM 137 MMOL/L (135-145); TOTAL CARBON DIOXIDE 21.1 MMOL/L (24-32); eGFR 28 ML/MIN
[2017-03-31] MEDS: K and/or MAG REPLACEMENT MC SCH (08:00)
[2017-03-31] MEDS: carVEDilol 3.125mg tablet PO SCH ×2 (08:57→20:56)
[2017-03-31] MEDS: aspirin 81mg tab.chew PO SCH (08:57)
[2017-03-31] MEDS: atorvastatin 20mg tablet PO SCH (08:57)
[2017-03-31] MEDS: sacubitril/valsartan 24mg-26mg tablet PO SCH ×2 (08:57→20:56)
[2017-03-31] MEDS: clopidogrel 75mg tablet PO SCH (08:57)
[2017-03-31] MEDS: apixaban 5mg tablet PO SCH ×2 (08:57→20:56)
[2017-03-31] MEDS: DOBUTamine-DoBUTrex 500mg/D5W 250 ML IV SCH (14:32)
[2017-03-31] MEDS: insulin glargine (Lantus) pen - multi-dose SQ SCH (20:57)
[2017-04-01] VITALS (15 sets, daily range): BP systolic 107–175; BP diastolic 49–82
[2017-04-01] MEDS: DOBUTamine-DoBUTrex 500mg/D5W 250 ML IV SCH (04:06)
[2017-04-01 05:21] LABS: HEMATOCRIT 38.6 % (42.0-52.0); HEMOGLOBIN 13.1 g/dl (14.0-17.9); MEAN CORPUSCULAR HEMOGLOBIN 31.3 PG (27.0-31.0); MEAN CORPUSCULAR HGB CONC 33.9 % (33.0-36.5); MEAN CORPUSCULAR VOLUME 92.2 FL (78-98); MEAN PLATELET VOLUME 8.5 FL (7.4-10.4); PLATELET COUNT 270 X10'3 (140-440); RED BLOOD COUNT 4.18 X10'6 (4.70-6.10); RED CELL DISTRIBUTION WIDTH 15.2 % (11.5-14.5); WHITE BLOOD COUNT 6.8 X10'3 (4.5-11.0)
[2017-04-01] MEDS: K and/or MAG REPLACEMENT MC SCH (08:00)
[2017-04-01] MEDS: apixaban 5mg tablet PO SCH ×2 (08:31→20:24)
[2017-04-01] MEDS: atorvastatin 20mg tablet PO SCH (08:31)
[2017-04-01] MEDS: clopidogrel 75mg tablet PO SCH (08:32)
[2017-04-01] MEDS: sacubitril/valsartan 24mg-26mg tablet PO SCH ×2 (08:32→20:00)
[2017-04-01] MEDS: aspirin 81mg tab.chew PO SCH (08:32)
[2017-04-01] MEDS: carVEDilol 3.125mg tablet PO SCH ×2 (08:32→20:00)
[2017-04-01] MEDS: insulin glargine (Lantus) pen - multi-dose SQ SCH (21:00)
[2017-04-02] VITALS (13 sets, daily range): BP systolic 95–165; BP diastolic 51–99
[2017-04-02 06:13] LABS: GLUCOSE 129 MG/DL (70-104)
[2017-04-02 06:14] LABS: ALBUMIN 3.1 G/DL (3.4-5.0); ANION GAP 10 (8-16); BLOOD UREA NITROGEN 56 MG/DL (7-18); BUN/CREATININE RATIO 25.5 (5.4-32.0); CALCIUM 9.3 MG/DL (8.5-10.1); CHLORIDE 105 MMOL/L (99-107); POTASSIUM 4.7 MMOL/L (3.5-5.1); SODIUM 138 MMOL/L (135-145); TOTAL CARBON DIOXIDE 23.1 MMOL/L (24-32); eGFR 29 ML/MIN
[2017-04-02 06:14] LABS: HEMATOCRIT 38.8 % (42.0-52.0); HEMOGLOBIN 13.3 g/dl (14.0-17.9); MEAN CORPUSCULAR HEMOGLOBIN 31.7 PG (27.0-31.0); MEAN CORPUSCULAR HGB CONC 34.1 % (33.0-36.5); MEAN CORPUSCULAR VOLUME 92.9 FL (78-98); MEAN PLATELET VOLUME 8.8 FL (7.4-10.4); PLATELET COUNT 277 X10'3 (140-440); RED BLOOD COUNT 4.18 X10'6 (4.70-6.10); RED CELL DISTRIBUTION WIDTH 14.9 % (11.5-14.5); WHITE BLOOD COUNT 8.1 X10'3 (4.5-11.0)
[2017-04-02 07:29] LABS: ANION GAP 10 (8-16); BLOOD UREA NITROGEN 55 MG/DL (7-18); CALCIUM 9.2 MG/DL (8.5-10.1); CHLORIDE 104 MMOL/L (99-107); GLUCOSE 127 MG/DL (70-104); POTASSIUM 4.8 MMOL/L (3.5-5.1); SODIUM 138 MMOL/L (135-145); TOTAL CARBON DIOXIDE 23.8 MMOL/L (24-32); eGFR 29 ML/MIN
[2017-04-02] MEDS: K and/or MAG REPLACEMENT MC SCH (08:00)
[2017-04-02] MEDS: clopidogrel 75mg tablet PO SCH (08:35)
[2017-04-02] MEDS: aspirin 81mg tab.chew PO SCH (08:35)
[2017-04-02] MEDS: apixaban 5mg tablet PO SCH ×2 (08:35→21:11)
[2017-04-02] MEDS: sacubitril/valsartan 24mg-26mg tablet PO SCH ×2 (08:35→21:11)
[2017-04-02] MEDS: carVEDilol 3.125mg tablet PO SCH ×2 (08:36→21:11)
[2017-04-02] MEDS: atorvastatin 20mg tablet PO SCH (08:36)
[2017-04-02] MEDS: insulin glargine (Lantus) pen - multi-dose SQ SCH (21:00)
[2017-04-03] VITALS (7 sets, daily range): BP systolic 106–174; BP diastolic 50–81
[2017-04-03 05:38] LABS: HEMOGLOBIN 12.5 g/dl (14.0-17.9); MEAN CORPUSCULAR HEMOGLOBIN 31.2 PG (27.0-31.0); MEAN CORPUSCULAR HGB CONC 33.8 % (33.0-36.5); MEAN CORPUSCULAR VOLUME 92.5 FL (78-98); PLATELET COUNT 273 X10'3 (140-440); RED CELL DISTRIBUTION WIDTH 14.8 % (11.5-14.5); WHITE BLOOD COUNT 9.5 X10'3 (4.5-11.0)
[2017-04-03 06:00] LABS: ANION GAP 12 (8-16); BLOOD UREA NITROGEN 58 MG/DL (7-18); BUN/CREATININE RATIO 27.6 (5.4-32.0); CALCIUM 9.3 MG/DL (8.5-10.1); CHLORIDE 103 MMOL/L (99-107); GLUCOSE 122 MG/DL (70-104); POTASSIUM 4.5 MMOL/L (3.5-5.1); SODIUM 136 MMOL/L (135-145); TOTAL CARBON DIOXIDE 21.2 MMOL/L (24-32); eGFR 31 ML/MIN
[2017-04-03] MEDS ORDERED: ALLO100T15 (07:21)
[2017-04-03] MEDS: K and/or MAG REPLACEMENT MC SCH (08:00)
[2017-04-03] MEDS: clopidogrel 75mg tablet PO SCH (08:46)
[2017-04-03] MEDS: sacubitril/valsartan 24mg-26mg tablet PO SCH ×2 (08:46→19:16)
[2017-04-03] MEDS: carVEDilol 3.125mg tablet PO SCH ×2 (08:47→19:16)
[2017-04-03] MEDS: atorvastatin 20mg tablet PO SCH (08:48)
[2017-04-03] MEDS: apixaban 5mg tablet PO SCH ×2 (08:48→19:16)
[2017-04-03] MEDS: aspirin 81mg tab.chew PO SCH (08:48)
[2017-04-03] MEDS: insulin glargine (Lantus) pen - multi-dose SQ SCH (21:00)
[2017-04-04] VITALS: BP 135/74
[2017-04-04 05:29] LABS: HEMATOCRIT 37.4 % (42.0-52.0); HEMOGLOBIN 12.9 g/dl (14.0-17.9); MEAN CORPUSCULAR HEMOGLOBIN 31.9 PG (27.0-31.0); MEAN CORPUSCULAR HGB CONC 34.5 % (33.0-36.5); MEAN CORPUSCULAR VOLUME 92.6 FL (78-98); MEAN PLATELET VOLUME 8.8 FL (7.4-10.4); PLATELET COUNT 276 X10'3 (140-440); RED BLOOD COUNT 4.04 X10'6 (4.70-6.10); RED CELL DISTRIBUTION WIDTH 15.3 % (11.5-14.5); WHITE BLOOD COUNT 9.8 X10'3 (4.5-11.0)
[2017-04-04 06:02] LABS: ALBUMIN 3.1 G/DL (3.4-5.0); ANION GAP 10 (8-16); BLOOD UREA NITROGEN 66 MG/DL (7-18); BUN/CREATININE RATIO 31.4 (5.4-32.0); CALCIUM 9.5 MG/DL (8.5-10.1); CHLORIDE 102 MMOL/L (99-107); GLUCOSE 131 MG/DL (70-104); POTASSIUM 4.7 MMOL/L (3.5-5.1); SODIUM 136 MMOL/L (135-145); TOTAL CARBON DIOXIDE 24.4 MMOL/L (24-32); eGFR 31 ML/MIN
[2017-04-04 08:00] VITALS: BP 147/78
[2017-04-04] MEDS: atorvastatin 20mg tablet PO SCH (08:00)
[2017-04-04] MEDS: apixaban 5mg tablet PO SCH ×2 (08:00→19:47)
[2017-04-04] MEDS: K and/or MAG REPLACEMENT MC SCH (08:00)
[2017-04-04] MEDS: sacubitril/valsartan 24mg-26mg tablet PO SCH ×2 (08:00→19:47)
[2017-04-04] MEDS: clopidogrel 75mg tablet PO SCH (08:00)
[2017-04-04] MEDS: carVEDilol 3.125mg tablet PO SCH ×2 (08:00→19:47)
[2017-04-04] MEDS: aspirin 81mg tab.chew PO SCH (08:30)
[2017-04-04 11:00] VITALS: BP 100/61
[2017-04-04 20:00] VITALS: BP 111/64
[2017-04-04] MEDS: insulin glargine (Lantus) pen - multi-dose SQ SCH (21:00)
[2017-04-05] MEDS: apixaban 5mg tablet PO SCH ×2 (07:53→23:06)
[2017-04-05] MEDS: aspirin 81mg tab.chew PO SCH (07:53)
[2017-04-05] MEDS: carVEDilol 3.125mg tablet PO SCH ×2 (07:53→20:00)
[2017-04-05] MEDS: clopidogrel 75mg tablet PO SCH (07:53)
[2017-04-05] MEDS: sacubitril/valsartan 24mg-26mg tablet PO SCH ×2 (07:53→20:00)
[2017-04-05] MEDS: atorvastatin 20mg tablet PO SCH (07:54)
[2017-04-05 07:56] VITALS: BP 190/88
[2017-04-05] MEDS: K and/or MAG REPLACEMENT MC SCH (08:00)
[2017-04-05 20:00] VITALS: BP 152/79
[2017-04-05] MEDS: insulin glargine (Lantus) pen - multi-dose SQ SCH (21:00)
[2017-04-06] VITALS: BP 148/75
[2017-04-06 07:37] VITALS: BP 183/79
[2017-04-06] MEDS: aspirin 81mg tab.chew PO SCH (07:41)
[2017-04-06] MEDS: clopidogrel 75mg tablet PO SCH (07:41)
[2017-04-06] MEDS: atorvastatin 20mg tablet PO SCH (07:42)
[2017-04-06] MEDS: carVEDilol 3.125mg tablet PO SCH ×2 (07:42→20:00)
[2017-04-06] MEDS: sacubitril/valsartan 24mg-26mg tablet PO SCH ×2 (07:43→20:00)
[2017-04-06] MEDS: apixaban 5mg tablet PO SCH ×2 (07:43→20:35)
[2017-04-06] MEDS: K and/or MAG REPLACEMENT MC SCH (09:52)
[2017-04-06 11:24] VITALS: BP 119/64
[2017-04-06 15:25] VITALS: BP 142/67
[2017-04-06 15:58] VITALS: BP 142/66
[2017-04-06 20:00] VITALS: BP 132/68
[2017-04-06] MEDS: insulin glargine (Lantus) pen - multi-dose SQ SCH (20:40)
[2017-04-07] VITALS: BP 164/93
[2017-04-07 07:00] VITALS: BP 185/85
[2017-04-07] MEDS: clopidogrel 75mg tablet PO SCH (07:38)
[2017-04-07] MEDS: atorvastatin 20mg tablet PO SCH (07:38)
[2017-04-07] MEDS: carVEDilol 3.125mg tablet PO SCH ×2 (07:38→20:25)
[2017-04-07] MEDS: aspirin 81mg tab.chew PO SCH (07:38)
[2017-04-07] MEDS: sacubitril/valsartan 24mg-26mg tablet PO SCH ×2 (07:38→20:25)
[2017-04-07] MEDS: apixaban 5mg tablet PO SCH ×2 (07:38→20:25)
[2017-04-07] MEDS: K and/or MAG REPLACEMENT MC SCH (07:44)
[2017-04-07 11:00] VITALS: BP 122/59
[2017-04-07 20:00] VITALS: BP 159/80
[2017-04-07] MEDS: insulin glargine (Lantus) pen - multi-dose SQ SCH (20:31)
[2017-04-08] VITALS: BP 152/96
[2017-04-08] MEDS: K and/or MAG REPLACEMENT MC SCH (06:30)
[2017-04-08 07:00] VITALS: BP 131/80
[2017-04-08] MEDS: clopidogrel 75mg tablet PO SCH (08:16)
[2017-04-08] MEDS: sacubitril/valsartan 24mg-26mg tablet PO SCH ×2 (08:16→19:48)
[2017-04-08] MEDS: carVEDilol 3.125mg tablet PO SCH ×2 (08:16→19:48)
[2017-04-08] MEDS: apixaban 5mg tablet PO SCH ×2 (08:16→19:48)
[2017-04-08] MEDS: aspirin 81mg tab.chew PO SCH (08:16)
[2017-04-08] MEDS: atorvastatin 20mg tablet PO SCH (08:16)
[2017-04-08 11:00] VITALS: BP 150/67
[2017-04-08 20:00] VITALS: BP 147/88
[2017-04-08] MEDS: insulin glargine (Lantus) pen - multi-dose SQ SCH (20:35)
[2017-04-09] VITALS: BP 145/85
[2017-04-09 07:00] VITALS: BP 148/72
[2017-04-09] MEDS: aspirin 81mg tab.chew PO SCH (08:14)
[2017-04-09] MEDS: apixaban 5mg tablet PO SCH (08:14)
[2017-04-09] MEDS: carVEDilol 3.125mg tablet PO SCH (08:14)
[2017-04-09] MEDS: clopidogrel 75mg tablet PO SCH (08:14)
[2017-04-09] MEDS: sacubitril/valsartan 24mg-26mg tablet PO SCH (08:14)
[2017-04-09] MEDS: atorvastatin 20mg tablet PO SCH (08:14)
== END 2017-04-09 11:08 | DRG 981 ==
LOC: ER 10:38 → ED HOLD 15:01 → EDBEDREQ 16:21 → PCU 3S 18:05 → ICU 2S 03-24 10:57 → PCU 3S 03-26 10:40 → SUR 3N 04-03 21:42
PROVIDERS: ADMIT Family Medicine; ATTEND Family Medicine
PROC: 4A023N8 Measurement of Cardiac Sampling and Pressure, Bilateral, Percutaneous Approach (ICD-10-PCS; principal; 2017-03-24)
PROC: 027034Z Dilation of Coronary Artery, One Artery with Drug-eluting Intraluminal Device, Percutaneous Approach (ICD-10-PCS; 2017-03-24)
PROC: B2111ZZ Fluoroscopy of Multiple Coronary Arteries using Low Osmolar Contrast (ICD-10-PCS; 2017-03-24)
PROC: B2131ZZ Fluoroscopy of Multiple Coronary Artery Bypass Grafts using Low Osmolar Contrast (ICD-10-PCS; 2017-03-24)
DX: I63.9 Cerebral infarction, unspecified (principal); I21.4 Non-ST elevation (NSTEMI) myocardial infarction; I50.23 Acute on chronic systolic (congestive) heart failure; N17.9 Acute kidney failure, unspecified; I48.2 Chronic atrial fibrillation; E11.22 Type 2 diabetes mellitus with diabetic chronic kidney disease; E11.65 Type 2 diabetes mellitus with hyperglycemia; E87.5 Hyperkalemia; I48.92 Unspecified atrial flutter; I42.9 Cardiomyopathy, unspecified; I13.0 Hypertensive heart and chronic kidney disease with heart failure and stage 1 through stage 4 chronic kidney disease, or unspecified chronic kidney disease; I45.2 Bifascicular block; I44.7 Left bundle-branch block, unspecified; E78.00 Pure hypercholesterolemia, unspecified; Z96.612 Presence of left artificial shoulder joint; E78.5 Hyperlipidemia, unspecified; N18.3 Chronic kidney disease, stage 3 (moderate); F01.50 Vascular dementia, unspecified severity, without behavioral disturbance, psychotic disturbance, mood disturbance, and anxiety; G93.89 Other specified disorders of brain; I25.10 Atherosclerotic heart disease of native coronary artery without angina pectoris; I44.0 Atrioventricular block, first degree; I25.2 Old myocardial infarction; Z79.02 Long term (current) use of antithrombotics/antiplatelets; Z79.82 Long term (current) use of aspirin; Z79.899 Other long term (current) drug therapy; Z79.01 Long term (current) use of anticoagulants; Z95.1 Presence of aortocoronary bypass graft; Z86.73 Personal history of transient ischemic attack (TIA), and cerebral infarction without residual deficits; Z23 Encounter for immunization; Z75.1 Person awaiting admission to adequate facility elsewhere
CPT/HCPCS: 93306; 93459; 96374; 96375; 99291; C9600; 36415; 70450; 71045; 80048; 80053; 80061; 81001; 82272; 82803; 82948; 83036; 83735; 83880; 84439; 84443; 84484; 85014; 85025; 85027; 85347; 85610; 85730; 87070; 93005; 93880; 97110; 97116; 97161; 97530; 99152; 99153; A4315; A4620; A6212; A6213; A6251; A6257; A6402; A6449; C1725; C1758; C1769; C1874; C1894; J0360; J0461; J1250; J1644; J1815; J1940; J2001; J2250; J2270; J3010; J3246; J3490; J7030; Q9967

== ENCOUNTER 2017-05-15 05:01 | Inpatient (IN) | payer OTHER, MEDICARE, BC ==
[~2017-05-15] VITALS: Ht 177.8 cm; Wt 77.3 kg
[~2017-05-15 05:01] MED LIST changes: +ALLO100T15 PO; +CARV3.123 PO; +FURO40TA4; +LISI10TA4 PO; +SPIR25TA3; +WARF-55 PO; -WARF5TAB7 PO
[2017-05-15] MEDS ORDERED: normal saline 1000ML IV soln IVB ONE ×2 (05:20→06:45)
[2017-05-15 05:30] LABS: BASOPHILS % (AUTO) 0 % (0-1); EOSINOPHILS % (AUTO) 0.5 % (0-6); HEMATOCRIT 39.2 % (42.0-52.0); HEMOGLOBIN 12.9 g/dl (14.0-17.9); LYMPHOCYTES # (AUTO) 0.2 X10'3 (1.1-4.8); LYMPHOCYTES % (AUTO) 1.7 % (21-51); MEAN CORPUSCULAR HEMOGLOBIN 30.6 PG (27.0-31.0); MEAN CORPUSCULAR VOLUME 92.6 FL (78-98); MEAN PLATELET VOLUME 9.8 FL (7.4-10.4); MONOCYTES # (AUTO) 0.5 X10'3 (0-0.9); MONOCYTES % (AUTO) 5.2 % (2-12); NEUTROPHILS # (AUTO) 8.9 X10'3 (1.8-7.7); NEUTROPHILS % (AUTO) 92.6 % (42-75); PLATELET COUNT 127 X10'3 (140-440); RED BLOOD COUNT 4.24 X10'6 (4.70-6.10); RED CELL DISTRIBUTION WIDTH 17.3 % (11.5-14.5); WHITE BLOOD COUNT 9.6 X10'3 (4.5-11.0)
[2017-05-15 05:46] LABS: CLARITY,URINE SLIGHTLY CLOUDY (Clear); COLOR,URINE YELLOW (Yellow); GLUCOSE, URINE NEGATIVE (Neg); KETONES,URINE NEGATIVE (Neg); LEUKOCYTE ESTERASE ,URINE NEGATIVE (Neg); NITRITES, URINE NEGATIVE (Neg); OCCULT BLOOD,URINE TRACE-INTACT (Neg); PH,URINE 5.5 (4.8-8.0); PROTEIN,URINE 100 mg/dl (Neg); UROBILINOGEN,URINE 0.2 E.U/dL (0.2-1.0)
[2017-05-15 05:47] LABS: UA COLLECTION TYPE FOLEY CATH
[2017-05-15 05:52] LABS: ACETAMINOPHEN < 2.0 UG/ML (10-30); ALANINE AMINOTRANSFERASE 43 U/L (12-78); ALBUMIN 2.8 G/DL (3.4-5.0); ALBUMIN/GLOBULIN RATIO 0.7 (1.1-1.5); ALKALINE PHOSPHATASE 84 IU/L (46-116); ANION GAP 17 (8-16); ASPARTATE AMINO TRANSFERASE 55 U/L (10-37); BILIRUBIN,TOTAL 1.3 MG/DL (0.1-1.0); BLOOD UREA NITROGEN 88 MG/DL (7-18); BUN/CREATININE RATIO 25.6 (5.4-32.0); CALCIUM 9.8 MG/DL (8.5-10.1); CHLORIDE 111 MMOL/L (99-107); CKMB RELATIVE INDEX 0.4 RATIO (0-2.5); CREATINE KINASE 417 U/L (39-308); CREATININE 3.44 MG/DL (0.60-1.10); ETHANOL < 0.010 GM/DL (0.0-0.010); GLUCOSE 226 MG/DL (70-104); POTASSIUM 4.6 MMOL/L (3.5-5.1); SODIUM 151 MMOL/L (135-145); TOTAL CARBON DIOXIDE 22.6 MMOL/L (24-32); TOTAL PROTEIN 6.8 G/DL (6.4-8.2); eGFR 17 ML/MIN
[2017-05-15 05:59] LABS: URINE AMPHETAMINE SCREEN NEGATIVE (Neg); URINE BARBITUATE SCREEN NEGATIVE (Neg); URINE BENZODIAZEPINES SCREEN NEGATIVE (Neg); URINE CANNABINOID SCREEN NEGATIVE (Neg); URINE COCAINE SCREEN NEGATIVE (Neg); URINE METHADONE SCREEN NEGATIVE (Neg); URINE OPIATE SCREEN NEGATIVE (Neg); URINE PHENCYCLIDINE SCREEN NEGATIVE (Neg)
[2017-05-15 06:01] LABS: AMORPHOUS URATES 2+; BACTERIA,URINE NONE SEEN /HPF (Neg); MUCUS STRANDS NONE SEEN /LPF (Neg); RBC,URINE NONE SEEN /HPF (0-2); SQUAMOUS EPITHELIAL CELL,UR NONE SEEN /LPF (FEW); WBC,URINE NONE SEEN /HPF (0-4)
[2017-05-15] MEDS ORDERED: aspirin 300mg supp.rect RC ONE (06:25)
[2017-05-15] MEDS ORDERED: heparin 10,000 units/1 ML INJ IV ONE (06:35)
[2017-05-15 06:45] LABS: ABG BASE EXCESS -0.2 mmol/L (-2.0-3.0); ABG HCO3 24.3 mmol/L (22.0-26.0); ABG OXYGEN SATURATION 98.2 % (95-98); ABG PCO2 (T) 39.2 mmHg (35.0-48.0); ABG PO2 (T) 128.6 mmHg (83-108); FCOHb 0.8 % (0.5-1.5); FLOW 2 L/min; FMetHb 0.2 % (0.3-1.12); FO2Hb 97.2 % (94-100); TOTAL HEMOGLOBIN 13.3 G/dl (14.0-18.0)
[2017-05-15 07:07] LABS: INR 1.2 INR; PARTIAL THROMBOPLASTIN TIME 34 SECONDS (22-32); PROTHROMBIN TIME 12.3 SECONDS (9.0-12.0)
[2017-05-15] MEDS ORDERED: acetaminophen 325mg tablet PO PRN ×2 (07:25)
[2017-05-15] MEDS ORDERED: magnesium hydroxide 30ml (MOM) UD suspension PO PRN (07:25)
[2017-05-15] MEDS ORDERED: ondansetron/PF 4mg/2ml inj IV PRN (07:25)
[2017-05-15] MEDS ORDERED: magnesium 2GM in 50ml NS 50 ML IV PRN (07:25)
[2017-05-15] MEDS ORDERED: potassium Cl 40MEQ/NS 500ml 500 ML IV PRN ×2 (07:25)
[2017-05-15] MEDS ORDERED: magnesium 4gm in 100ml NS 100 ML IV PRN (07:25)
[2017-05-15] MEDS ORDERED: potassium Cl 20 mEq SR tablet PO PRN ×2 (07:25)
[2017-05-15] MEDS ORDERED: mag hydrox/Alum hydrox/simeth 30ml oral suspension PO PRN (07:25)
[2017-05-15] MEDS ORDERED: heparin 10,000 units/1 ML INJ IV PRN (07:25)
[2017-05-15] MEDS ORDERED: magnesium Cl slow-release 64mg tablet PO PRN (07:25)
[2017-05-15] MEDS: K and/or MAG REPLACEMENT MC SCH (08:00)
[2017-05-15] MEDS: dextrose 5%-1/2 normal saline 1,000 ML IV SCH ×2 (08:28→17:25)
[2017-05-15 08:54] LABS: MAGNESIUM 2.7 MG/DL (1.5-2.4); PHOSPHORUS 4.7 MG/DL (2.3-4.5)
[2017-05-15 10:00] VITALS: BP 159/76
[2017-05-15] MEDS ORDERED: CLOP75TA35 PO (10:21)
[2017-05-15] MEDS ORDERED: ESCI10TA PO (10:22)
[2017-05-15] MEDS ORDERED: APIX2.5T PO (10:22)
[2017-05-15] MEDS ORDERED: QUET50TA22 (10:25)
[2017-05-15] MEDS ORDERED: MULT-933 PO (10:25)
[2017-05-15] MEDS ORDERED: ATOR-2 PO (10:29)
[2017-05-15] MEDS ORDERED: LORA0.5T PO (10:30)
[2017-05-15] MEDS ORDERED: LACTC PO (10:38)
[2017-05-15 11:00] VITALS: BP 169/69
[2017-05-15] MEDS ORDERED: pneumococcal 23-VAL P-sac vacc 25 mcg/0.5ml vial IMVAC ONE (11:40)
[2017-05-15 11:46] LABS: ALBUMIN 2.5 G/DL (3.4-5.0); ANION GAP 8 (8-16); BLOOD UREA NITROGEN 90 MG/DL (7-18); BUN/CREATININE RATIO 28.6 (5.4-32.0); CALCIUM 9.1 MG/DL (8.5-10.1); CHLORIDE 114 MMOL/L (99-107); CREATININE 3.15 MG/DL (0.60-1.10); GLUCOSE 203 MG/DL (70-104); POTASSIUM 4.2 MMOL/L (3.5-5.1); SODIUM 149 MMOL/L (135-145); TOTAL CARBON DIOXIDE 26.6 MMOL/L (24-32); eGFR 19 ML/MIN
[2017-05-15 15:00] VITALS: BP 156/59
[2017-05-15 19:00] VITALS: BP 161/80
[2017-05-15] MEDS ORDERED: non-formulary drug (Atorvastatin Calcium 1 TAB) PO SCH (21:00)
[2017-05-15] MEDS: carVEDilol 3.125mg tablet PO SCH (21:04)
[2017-05-15] MEDS: apixaban 2.5mg tablet PO SCH (21:04)
[2017-05-15] MEDS: atorvastatin 20mg tablet PO SCH (21:04)
[2017-05-15 23:00] VITALS: BP 148/73
[2017-05-16 03:00] VITALS: BP 172/74
[2017-05-16] MEDS: dextrose 5%-1/2 normal saline 1,000 ML IV SCH ×3 (04:03→13:25)
[2017-05-16 05:55] LABS: BASOPHILS % (AUTO) 0 % (0-1); EOSINOPHILS # (AUTO) 0.1 X10'3 (0-0.9); EOSINOPHILS % (AUTO) 0.9 % (0-6); HEMATOCRIT 35.3 % (42.0-52.0); HEMOGLOBIN 11.7 g/dl (14.0-17.9); LYMPHOCYTES # (AUTO) 0.1 X10'3 (1.1-4.8); LYMPHOCYTES % (AUTO) 1.4 % (21-51); MEAN CORPUSCULAR HEMOGLOBIN 30.1 PG (27.0-31.0); MEAN CORPUSCULAR HGB CONC 33.2 % (33.0-36.5); MEAN CORPUSCULAR VOLUME 90.8 FL (78-98); MEAN PLATELET VOLUME 9.6 FL (7.4-10.4); MONOCYTES # (AUTO) 0.3 X10'3 (0-0.9); MONOCYTES % (AUTO) 4.6 % (2-12); NEUTROPHILS # (AUTO) 6.7 X10'3 (1.8-7.7); NEUTROPHILS % (AUTO) 93.1 % (42-75); PLATELET COUNT 116 X10'3 (140-440); RED BLOOD COUNT 3.89 X10'6 (4.70-6.10); RED CELL DISTRIBUTION WIDTH 17.1 % (11.5-14.5); WHITE BLOOD COUNT 7.2 X10'3 (4.5-11.0)
[2017-05-16 06:15] LABS: ALANINE AMINOTRANSFERASE 43 U/L (12-78); ALBUMIN 2.2 G/DL (3.4-5.0); ALBUMIN/GLOBULIN RATIO 0.6 (1.1-1.5); ALKALINE PHOSPHATASE 61 IU/L (46-116); ANION GAP 10 (8-16); ASPARTATE AMINO TRANSFERASE 51 U/L (10-37); BLOOD UREA NITROGEN 81 MG/DL (7-18); CALCIUM 9.1 MG/DL (8.5-10.1); CHLORIDE 115 MMOL/L (99-107); CHOL/HDL RATIO 1.8 (0.00-4.99); CHOLESTEROL 74 MG/DL (0-200); CREATININE 2.53 MG/DL (0.60-1.10); GLUCOSE 184 MG/DL (70-104); HDL CHOLESTEROL 42 MG/DL (35-60); LDL CHOLESTEROL 21 MG/DL (50-100); MAGNESIUM 2.4 MG/DL (1.5-2.4); POTASSIUM 3.6 MMOL/L (3.5-5.1); SODIUM 149 MMOL/L (135-145); TOTAL CARBON DIOXIDE 23.7 MMOL/L (24-32); TOTAL PROTEIN 5.6 G/DL (6.4-8.2); TRIGLYCERIDES 63 MG/DL (20-135); eGFR 25 ML/MIN
[2017-05-16 06:30] VITALS: BP 151/72
[2017-05-16] MEDS: K and/or MAG REPLACEMENT MC SCH (08:00)
[2017-05-16] MEDS: aspirin 81mg tab.chew PO SCH (09:23)
[2017-05-16] MEDS: apixaban 2.5mg tablet PO SCH ×2 (09:23→21:11)
[2017-05-16] MEDS: carVEDilol 3.125mg tablet PO SCH ×2 (09:23→21:11)
[2017-05-16] MEDS: clopidogrel 75mg tablet PO SCH (09:28)
[2017-05-16 11:00] VITALS: BP 102/47
[2017-05-16] MEDS ORDERED: dextrose ORAL solution 15 GM/59 ML bottle PO PRN ×2 (14:35)
[2017-05-16] MEDS ORDERED: glucagon, human recombinant 1mg kit SUBCUT PRN (14:35)
[2017-05-16] MEDS ORDERED: dextrose 50%-water 50ml dispensing syringe IV PRN ×2 (14:35)
[2017-05-16] MEDS ORDERED: MESSAGE TO PHARMACY PO ONE (14:35)
[2017-05-16] MEDS ORDERED: insulin Lispro (HumaLOG) vial - multi-dose SQ SCH (14:35)
[2017-05-16 15:00] VITALS: BP 142/68
[2017-05-16] MEDS: insulin glargine (Lantus) pen - multi-dose SQ SCH (21:00)
[2017-05-16] MEDS: atorvastatin 20mg tablet PO SCH (21:11)
[2017-05-17 05:16] LABS: BASOPHILS % (AUTO) 0 % (0-1); EOSINOPHILS # (AUTO) 0.1 X10'3 (0-0.9); EOSINOPHILS % (AUTO) 1.1 % (0-6); HEMOGLOBIN 13.2 g/dl (14.0-17.9); LYMPHOCYTES # (AUTO) 0.2 X10'3 (1.1-4.8); LYMPHOCYTES % (AUTO) 1.7 % (21-51); MEAN CORPUSCULAR HEMOGLOBIN 30.5 PG (27.0-31.0); MEAN CORPUSCULAR HGB CONC 33.1 % (33.0-36.5); MEAN CORPUSCULAR VOLUME 92.1 FL (78-98); MEAN PLATELET VOLUME 10.3 FL (7.4-10.4); MONOCYTES # (AUTO) 0.3 X10'3 (0-0.9); NEUTROPHILS # (AUTO) 8.2 X10'3 (1.8-7.7); NEUTROPHILS % (AUTO) 93.2 % (42-75); PLATELET COUNT 125 X10'3 (140-440); RED BLOOD COUNT 4.34 X10'6 (4.70-6.10); RED CELL DISTRIBUTION WIDTH 16.9 % (11.5-14.5); WHITE BLOOD COUNT 8.8 X10'3 (4.5-11.0)
[2017-05-17 05:45] LABS: ALANINE AMINOTRANSFERASE 46 U/L (12-78); ALBUMIN 2.5 G/DL (3.4-5.0); ALBUMIN/GLOBULIN RATIO 0.6 (1.1-1.5); ALKALINE PHOSPHATASE 82 IU/L (46-116); ANION GAP 12 (8-16); ASPARTATE AMINO TRANSFERASE 47 U/L (10-37); BILIRUBIN,TOTAL 1.3 MG/DL (0.1-1.0); BLOOD UREA NITROGEN 65 MG/DL (7-18); BUN/CREATININE RATIO 28.9 (5.4-32.0); CALCIUM 9.6 MG/DL (8.5-10.1); CHLORIDE 114 MMOL/L (99-107); CREATININE 2.25 MG/DL (0.60-1.10); GLUCOSE 173 MG/DL (70-104); MAGNESIUM 2.2 MG/DL (1.5-2.4); PHOSPHORUS 2.4 MG/DL (2.3-4.5); POTASSIUM 4.2 MMOL/L (3.5-5.1); SODIUM 150 MMOL/L (135-145); TOTAL CARBON DIOXIDE 24.4 MMOL/L (24-32); TOTAL PROTEIN 6.9 G/DL (6.4-8.2); eGFR 28 ML/MIN
[2017-05-17 06:33] LABS: TROPONIN I 0.51 NG/ML (0.0-0.05)
[2017-05-17 06:35] VITALS: BP 161/91
[2017-05-17] MEDS: K and/or MAG REPLACEMENT MC SCH (08:38)
[2017-05-17] MEDS: clopidogrel 75mg tablet PO SCH (08:43)
[2017-05-17] MEDS: aspirin 81mg tab.chew PO SCH (08:43)
[2017-05-17] MEDS: apixaban 2.5mg tablet PO SCH ×2 (08:43→20:21)
[2017-05-17] MEDS: carVEDilol 3.125mg tablet PO SCH ×2 (08:44→20:20)
[2017-05-17] MEDS ORDERED: dextrose 5%-water 1,000 ML IV SCH (10:10)
[2017-05-17 11:00] VITALS: BP 134/91
[2017-05-17 15:00] VITALS: BP 116/49
[2017-05-17] MEDS: furosemide 40mg/4ml inj IV SCH ×2 (16:40→20:20)
[2017-05-17] MEDS: losartan 50mg tablet PO SCH (16:51)
[2017-05-17] MEDS: cefTRIAXone 1g/NS 100ml IVPB 100 ML IV SCH (16:52)
[2017-05-17 18:00] VITALS: BP 137/67
[2017-05-17] MEDS: vancomycin/NS 1 GM ADD-VANTAGE 250 ML IV SCH (18:15)
[2017-05-17] MEDS: insulin glargine (Lantus) pen - multi-dose SQ SCH (20:17)
[2017-05-17] MEDS: lactobacillus rhamnosus 10,000 MMU CELLS/CAPSULE PO SCH (20:21)
[2017-05-17] MEDS: atorvastatin 20mg tablet PO SCH (20:21)
[2017-05-17 22:00] VITALS: BP 143/67
[2017-05-18 02:00] VITALS: BP 148/82
[2017-05-18 06:00] VITALS: BP 139/64
[2017-05-18 07:17] LABS: ALANINE AMINOTRANSFERASE 37 U/L (12-78); ALBUMIN/GLOBULIN RATIO 0.5 (1.1-1.5); ALKALINE PHOSPHATASE 69 IU/L (46-116); ANION GAP 10 (8-16); ASPARTATE AMINO TRANSFERASE 31 U/L (10-37); BLOOD UREA NITROGEN 71 MG/DL (7-18); BUN/CREATININE RATIO 30.7 (5.4-32.0); CALCIUM 9.1 MG/DL (8.5-10.1); CHLORIDE 116 MMOL/L (99-107); CREATININE 2.31 MG/DL (0.60-1.10); GLUCOSE 154 MG/DL (70-104); MAGNESIUM 2.2 MG/DL (1.5-2.4); PHOSPHORUS 2.8 MG/DL (2.3-4.5); POTASSIUM 3.5 MMOL/L (3.5-5.1); SODIUM 151 MMOL/L (135-145); TOTAL CARBON DIOXIDE 25.4 MMOL/L (24-32); eGFR 28 ML/MIN
[2017-05-18 07:27] LABS: BASOPHILS % (AUTO) 0 % (0-1); EOSINOPHILS % (AUTO) 0 % (0-6); HEMATOCRIT 36.6 % (42.0-52.0); LYMPHOCYTES # (AUTO) 0.2 X10'3 (1.1-4.8); LYMPHOCYTES % (AUTO) 2.7 % (21-51); MEAN CORPUSCULAR HEMOGLOBIN 30.1 PG (27.0-31.0); MEAN CORPUSCULAR HGB CONC 32.9 % (33.0-36.5); MEAN CORPUSCULAR VOLUME 91.7 FL (78-98); MEAN PLATELET VOLUME 10.5 FL (7.4-10.4); MONOCYTES # (AUTO) 0.3 X10'3 (0-0.9); MONOCYTES % (AUTO) 3.4 % (2-12); NEUTROPHILS # (AUTO) 7.1 X10'3 (1.8-7.7); NEUTROPHILS % (AUTO) 93.9 % (42-75); PLATELET COUNT 109 X10'3 (140-440); RED BLOOD COUNT 3.99 X10'6 (4.70-6.10); RED CELL DISTRIBUTION WIDTH 17.1 % (11.5-14.5); WHITE BLOOD COUNT 7.5 X10'3 (4.5-11.0)
[2017-05-18] MEDS: K and/or MAG REPLACEMENT MC SCH (08:00)
[2017-05-18] MEDS: aspirin 81mg tab.chew PO SCH (08:00)
[2017-05-18] MEDS: clopidogrel 75mg tablet PO SCH (08:00)
[2017-05-18] MEDS: cefTRIAXone 1g/NS 100ml IVPB 100 ML IV SCH (08:00)
[2017-05-18] MEDS: furosemide 40mg/4ml inj IV SCH (09:05)
[2017-05-18] MEDS: apixaban 2.5mg tablet PO SCH ×2 (09:09→20:40)
[2017-05-18] MEDS: losartan 50mg tablet PO SCH (09:10)
[2017-05-18] MEDS: carVEDilol 3.125mg tablet PO SCH ×2 (09:10→20:40)
[2017-05-18] MEDS: lactobacillus rhamnosus 10,000 MMU CELLS/CAPSULE PO SCH ×2 (09:11→20:39)
[2017-05-18 11:00] VITALS: BP 167/98
[2017-05-18] MEDS: vancomycin/NS 1 GM ADD-VANTAGE 250 ML IV SCH (14:57)
[2017-05-18 15:00] VITALS: BP 161/79
[2017-05-18 19:00] VITALS: BP 152/72
[2017-05-18] MEDS ORDERED: potassium Cl 20 mEq SR tablet PO ONE (20:00)
[2017-05-18] MEDS: atorvastatin 20mg tablet PO SCH (20:38)
[2017-05-18] MEDS: magnesium Cl slow-release 64mg tablet PO SCH (20:39)
[2017-05-18] MEDS: insulin glargine (Lantus) pen - multi-dose SQ SCH (21:00)
[2017-05-18 23:00] VITALS: BP 144/92
[2017-05-19] VITALS (8 sets, daily range): BP systolic 127–166; BP diastolic 72–101
[2017-05-19 05:32] LABS: BASOPHILS % (AUTO) 0 % (0-1); EOSINOPHILS % (AUTO) 0.1 % (0-6); HEMATOCRIT 32.8 % (42.0-52.0); HEMOGLOBIN 10.7 g/dl (14.0-17.9); LYMPHOCYTES # (AUTO) 0.2 X10'3 (1.1-4.8); LYMPHOCYTES % (AUTO) 3.5 % (21-51); MEAN CORPUSCULAR HEMOGLOBIN 29.8 PG (27.0-31.0); MEAN CORPUSCULAR HGB CONC 32.6 % (33.0-36.5); MEAN CORPUSCULAR VOLUME 91.5 FL (78-98); MEAN PLATELET VOLUME 10.3 FL (7.4-10.4); MONOCYTES # (AUTO) 0.3 X10'3 (0-0.9); MONOCYTES % (AUTO) 5.5 % (2-12); NEUTROPHILS # (AUTO) 5.4 X10'3 (1.8-7.7); NEUTROPHILS % (AUTO) 90.9 % (42-75); PLATELET COUNT 107 X10'3 (140-440); RED BLOOD COUNT 3.58 X10'6 (4.70-6.10); RED CELL DISTRIBUTION WIDTH 16.9 % (11.5-14.5); WHITE BLOOD COUNT 5.9 X10'3 (4.5-11.0)
[2017-05-19 06:04] LABS: ALANINE AMINOTRANSFERASE 49 U/L (12-78); ALBUMIN 1.8 G/DL (3.4-5.0); ALBUMIN/GLOBULIN RATIO 0.5 (1.1-1.5); ALKALINE PHOSPHATASE 71 IU/L (46-116); ANION GAP 12 (8-16); ASPARTATE AMINO TRANSFERASE 45 U/L (10-37); BILIRUBIN,TOTAL 0.8 MG/DL (0.1-1.0); BLOOD UREA NITROGEN 72 MG/DL (7-18); BUN/CREATININE RATIO 34.6 (5.4-32.0); CALCIUM 8.9 MG/DL (8.5-10.1); CHLORIDE 117 MMOL/L (99-107); CREATININE 2.08 MG/DL (0.60-1.10); GLUCOSE 158 MG/DL (70-104); PHOSPHORUS 2.6 MG/DL (2.3-4.5); POTASSIUM 3.8 MMOL/L (3.5-5.1); SODIUM 154 MMOL/L (135-145); TOTAL CARBON DIOXIDE 25.4 MMOL/L (24-32); TOTAL PROTEIN 5.7 G/DL (6.4-8.2); eGFR 31 ML/MIN
[2017-05-19] MEDS: losartan 50mg tablet PO SCH (07:51)
[2017-05-19] MEDS: carVEDilol 3.125mg tablet PO SCH ×2 (07:51→21:09)
[2017-05-19] MEDS: aspirin 81mg tab.chew PO SCH (07:52)
[2017-05-19] MEDS: lactobacillus rhamnosus 10,000 MMU CELLS/CAPSULE PO SCH ×2 (07:53→21:08)
[2017-05-19] MEDS: apixaban 2.5mg tablet PO SCH ×2 (07:53→21:09)
[2017-05-19] MEDS: magnesium Cl slow-release 64mg tablet PO SCH ×2 (07:53→21:09)
[2017-05-19] MEDS: potassium Cl 20 mEq SR tablet PO SCH ×2 (07:53→21:09)
[2017-05-19] MEDS: clopidogrel 75mg tablet PO SCH (07:53)
[2017-05-19] MEDS ORDERED: CefTRIAXone/D5W-Rocephin 1gm 50 ML IV SCH (08:00)
[2017-05-19] MEDS: K and/or MAG REPLACEMENT MC SCH (08:00)
[2017-05-19] MEDS: vancomycin/NS 1 GM ADD-VANTAGE 250 ML IV SCH (15:01)
[2017-05-19] MEDS: dextrose 5%-water 1,000 ML IV SCH (15:02)
[2017-05-19 17:21] LABS: ABG BASE EXCESS -2.4 mmol/L (-2.0-3.0); ABG HCO3 21.5 mmol/L (22.0-26.0); ABG OXYGEN SATURATION 99.8 % (95-98); ABG PCO2 (T) 34.2 mmHg (35.0-48.0); ABG PH (T) 7.416 (7.350-7.450); ALLEN'S TEST Positive; FCOHb 0.1 % (0.5-1.5); FLOW 15 L/min; FMetHb 0.2 % (0.3-1.12); FO2Hb 99.5 % (94-100); RESPIRATORY RATE (OBSERVED) 20 b/min; TOTAL HEMOGLOBIN 12.5 G/dl (14.0-18.0)
[2017-05-19] MEDS: insulin glargine (Lantus) pen - multi-dose SQ SCH (21:00)
[2017-05-19] MEDS: atorvastatin 20mg tablet PO SCH (21:08)
[2017-05-20 03:00] VITALS: BP 143/75
[2017-05-20] MEDS: dextrose 5%-water 1,000 ML IV SCH ×2 (04:31→16:50)
[2017-05-20 05:16] LABS: BASOPHILS % (AUTO) 0 % (0-1); EOSINOPHILS # (AUTO) 0.2 X10'3 (0-0.9); EOSINOPHILS % (AUTO) 2.4 % (0-6); HEMATOCRIT 36.2 % (42.0-52.0); HEMOGLOBIN 11.7 g/dl (14.0-17.9); LYMPHOCYTES # (AUTO) 0.4 X10'3 (1.1-4.8); LYMPHOCYTES % (AUTO) 5.2 % (21-51); MEAN CORPUSCULAR HEMOGLOBIN 29.8 PG (27.0-31.0); MEAN CORPUSCULAR HGB CONC 32.4 % (33.0-36.5); MEAN CORPUSCULAR VOLUME 91.8 FL (78-98); MEAN PLATELET VOLUME 10.4 FL (7.4-10.4); MONOCYTES # (AUTO) 0.5 X10'3 (0-0.9); MONOCYTES % (AUTO) 6.6 % (2-12); NEUTROPHILS # (AUTO) 6.5 X10'3 (1.8-7.7); NEUTROPHILS % (AUTO) 85.8 % (42-75); PLATELET COUNT 140 X10'3 (140-440); RED BLOOD COUNT 3.94 X10'6 (4.70-6.10); RED CELL DISTRIBUTION WIDTH 17.1 % (11.5-14.5); WHITE BLOOD COUNT 7.6 X10'3 (4.5-11.0)
[2017-05-20 06:00] VITALS: BP 171/78
[2017-05-20 06:50] LABS: ALANINE AMINOTRANSFERASE 67 U/L (12-78); ALBUMIN 1.9 G/DL (3.4-5.0); ALBUMIN/GLOBULIN RATIO 0.5 (1.1-1.5); ALKALINE PHOSPHATASE 83 IU/L (46-116); ANION GAP 10 (8-16); ASPARTATE AMINO TRANSFERASE 57 U/L (10-37); BILIRUBIN,TOTAL 0.7 MG/DL (0.1-1.0); BLOOD UREA NITROGEN 70 MG/DL (7-18); BUN/CREATININE RATIO 32.4 (5.4-32.0); CALCIUM 9.2 MG/DL (8.5-10.1); CHLORIDE 115 MMOL/L (99-107); CREATININE 2.16 MG/DL (0.60-1.10); GLUCOSE 201 MG/DL (70-104); MAGNESIUM 2.1 MG/DL (1.5-2.4); PHOSPHORUS 1.6 MG/DL (2.3-4.5); POTASSIUM 4.9 MMOL/L (3.5-5.1); SODIUM 150 MMOL/L (135-145); TOTAL CARBON DIOXIDE 24.9 MMOL/L (24-32); eGFR 30 ML/MIN
[2017-05-20] MEDS: potassium Cl 20 mEq SR tablet PO SCH ×2 (08:00→19:20)
[2017-05-20] MEDS: K and/or MAG REPLACEMENT MC SCH (08:00)
[2017-05-20] MEDS ORDERED: CefTRIAXone inj 1,000 MG in normal saline 100ml IV soln 100 ML IV SCH (08:00)
[2017-05-20] MEDS: losartan 50mg tablet PO SCH (08:39)
[2017-05-20] MEDS: apixaban 2.5mg tablet PO SCH ×2 (08:40→19:20)
[2017-05-20] MEDS: aspirin 81mg tab.chew PO SCH (08:40)
[2017-05-20] MEDS: magnesium Cl slow-release 64mg tablet PO SCH ×2 (08:40→19:20)
[2017-05-20] MEDS: clopidogrel 75mg tablet PO SCH (08:40)
[2017-05-20] MEDS: carVEDilol 3.125mg tablet PO SCH ×2 (08:40→19:20)
[2017-05-20] MEDS: lactobacillus rhamnosus 10,000 MMU CELLS/CAPSULE PO SCH ×2 (08:40→19:20)
[2017-05-20 11:00] VITALS: BP 137/56
[2017-05-20] MEDS ORDERED: VANCOMYCIN LEVEL IV NR (14:30)
[2017-05-20] MEDS: vancomycin/NS 1 GM ADD-VANTAGE 250 ML IV SCH (15:00)
[2017-05-20 16:17] VITALS: BP 172/80
[2017-05-20 19:00] VITALS: BP 185/98
[2017-05-20] MEDS: insulin glargine (Lantus) pen - multi-dose SQ SCH (21:00)
[2017-05-20] MEDS: atorvastatin 20mg tablet PO SCH (21:55)
[2017-05-20] MEDS: Neutra Phos packet PO SCH (21:58)
[2017-05-20 23:00] VITALS: BP 161/74
[2017-05-21 03:00] VITALS: BP 144/84
[2017-05-21] MEDS: dextrose 5%-water 1,000 ML IV SCH ×2 (06:47→21:04)
[2017-05-21 07:00] VITALS: BP 187/99
[2017-05-21] MEDS: losartan 50mg tablet PO SCH (07:16)
[2017-05-21] MEDS: lactobacillus rhamnosus 10,000 MMU CELLS/CAPSULE PO SCH ×2 (07:16→21:05)
[2017-05-21] MEDS: aspirin 81mg tab.chew PO SCH (07:16)
[2017-05-21] MEDS: carVEDilol 3.125mg tablet PO SCH ×2 (07:16→21:05)
[2017-05-21] MEDS: apixaban 2.5mg tablet PO SCH ×2 (07:16→21:06)
[2017-05-21] MEDS: Neutra Phos packet PO SCH ×3 (07:17→21:07)
[2017-05-21] MEDS: magnesium Cl slow-release 64mg tablet PO SCH ×2 (07:17→21:07)
[2017-05-21] MEDS: clopidogrel 75mg tablet PO SCH (07:17)
[2017-05-21] MEDS: potassium Cl 20 mEq SR tablet PO SCH ×2 (07:18→20:00)
[2017-05-21] MEDS: K and/or MAG REPLACEMENT MC SCH (08:00)
[2017-05-21 12:06] VITALS: BP 127/84
[2017-05-21] MEDS: VANCOMYCIN 750MG IV in NS 250 ML IV SCH (16:11)
[2017-05-21 19:00] VITALS: BP 139/85
[2017-05-21] MEDS: insulin glargine (Lantus) pen - multi-dose SQ SCH (21:00)
[2017-05-21] MEDS: atorvastatin 20mg tablet PO SCH (21:05)
[2017-05-21 23:00] VITALS: BP 162/82
[2017-05-21] MEDS: hydrALAZINE 20mg/ml inj. IV PRN (23:05)
[2017-05-22 03:00] VITALS: BP 134/67
[2017-05-22 07:00] VITALS: BP 190/84
[2017-05-22 07:06] LABS: BASOPHILS % (AUTO) 0.2 % (0-1); EOSINOPHILS # (AUTO) 0.3 X10'3 (0-0.9); EOSINOPHILS % (AUTO) 2.6 % (0-6); HEMATOCRIT 40.2 % (42.0-52.0); HEMOGLOBIN 13.3 g/dl (14.0-17.9); LYMPHOCYTES # (AUTO) 0.5 X10'3 (1.1-4.8); MEAN CORPUSCULAR HGB CONC 33.1 % (33.0-36.5); MEAN CORPUSCULAR VOLUME 90.6 FL (78-98); MEAN PLATELET VOLUME 11.1 FL (7.4-10.4); MONOCYTES # (AUTO) 0.5 X10'3 (0-0.9); MONOCYTES % (AUTO) 4.5 % (2-12); NEUTROPHILS # (AUTO) 10.4 X10'3 (1.8-7.7); NEUTROPHILS % (AUTO) 88.7 % (42-75); PLATELET COUNT 169 X10'3 (140-440); RED BLOOD COUNT 4.44 X10'6 (4.70-6.10); RED CELL DISTRIBUTION WIDTH 16.7 % (11.5-14.5); WHITE BLOOD COUNT 11.8 X10'3 (4.5-11.0)
[2017-05-22 07:20] LABS: ALANINE AMINOTRANSFERASE 41 U/L (12-78); ALBUMIN 1.9 G/DL (3.4-5.0); ALBUMIN/GLOBULIN RATIO 0.5 (1.1-1.5); ALKALINE PHOSPHATASE 83 IU/L (46-116); ANION GAP 8 (8-16); ASPARTATE AMINO TRANSFERASE 22 U/L (10-37); BILIRUBIN,TOTAL 1.3 MG/DL (0.1-1.0); BLOOD UREA NITROGEN 50 MG/DL (7-18); BUN/CREATININE RATIO 25.6 (5.4-32.0); CALCIUM 8.4 MG/DL (8.5-10.1); CHLORIDE 106 MMOL/L (99-107); CREATININE 1.95 MG/DL (0.60-1.10); GLUCOSE 208 MG/DL (70-104); POTASSIUM 4.8 MMOL/L (3.5-5.1); SODIUM 138 MMOL/L (135-145); TOTAL CARBON DIOXIDE 23.9 MMOL/L (24-32); TOTAL PROTEIN 6.1 G/DL (6.4-8.2); eGFR 33 ML/MIN
[2017-05-22 07:35] LABS: ANISOCYTOSIS 1+; BURR CELLS 1+; LARGE PLATELETS FEW; PLATELET ESTIMATE NORMAL
[2017-05-22] MEDS: potassium Cl 20 mEq SR tablet PO SCH ×2 (08:00→20:00)
[2017-05-22] MEDS: K and/or MAG REPLACEMENT MC SCH (08:00)
[2017-05-22] MEDS: magnesium Cl slow-release 64mg tablet PO SCH ×2 (08:12→20:03)
[2017-05-22] MEDS: carVEDilol 3.125mg tablet PO SCH ×2 (08:12→20:06)
[2017-05-22] MEDS: losartan 50mg tablet PO SCH (08:12)
[2017-05-22] MEDS: aspirin 81mg tab.chew PO SCH (08:12)
[2017-05-22] MEDS: Neutra Phos packet PO SCH ×3 (08:13→20:08)
[2017-05-22] MEDS: lactobacillus rhamnosus 10,000 MMU CELLS/CAPSULE PO SCH ×2 (08:13→20:06)
[2017-05-22] MEDS: clopidogrel 75mg tablet PO SCH (08:13)
[2017-05-22] MEDS: apixaban 2.5mg tablet PO SCH ×2 (08:13→20:06)
[2017-05-22] MEDS: dextrose 5%-water 1,000 ML IV SCH ×2 (09:20→22:40)
[2017-05-22 11:00] VITALS: BP 159/88
[2017-05-22] MEDS: VANCOMYCIN 750MG IV in NS 250 ML IV SCH (15:59)
[2017-05-22] MEDS: hydrALAZINE 20mg/ml inj. IV PRN (17:29)
[2017-05-22 19:00] VITALS: BP_SYST 130; BP_SYST 132; BP_DIAS 75; BP_DIAS 86
[2017-05-22] MEDS: atorvastatin 20mg tablet PO SCH (20:05)
[2017-05-22] MEDS: insulin glargine (Lantus) pen - multi-dose SQ SCH (21:00)
[2017-05-22 23:00] VITALS: BP_SYST 159; BP_SYST 163; BP_DIAS 84; BP_DIAS 88
[2017-05-23 03:00] VITALS: BP_SYST 132; BP_SYST 152; BP_DIAS 86
[2017-05-23 06:00] VITALS: BP 142/72
[2017-05-23] MEDS: magnesium Cl slow-release 64mg tablet PO SCH ×2 (08:00→20:00)
[2017-05-23] MEDS: carVEDilol 3.125mg tablet PO SCH ×2 (08:00→20:00)
[2017-05-23] MEDS: K and/or MAG REPLACEMENT MC SCH (08:00)
[2017-05-23] MEDS: aspirin 81mg tab.chew PO SCH (08:00)
[2017-05-23] MEDS: apixaban 2.5mg tablet PO SCH ×2 (08:00→20:00)
[2017-05-23] MEDS: lactobacillus rhamnosus 10,000 MMU CELLS/CAPSULE PO SCH ×2 (08:00→20:00)
[2017-05-23] MEDS: clopidogrel 75mg tablet PO SCH (08:00)
[2017-05-23] MEDS: potassium Cl 20 mEq SR tablet PO SCH ×2 (08:00→20:00)
[2017-05-23] MEDS: losartan 50mg tablet PO SCH (08:00)
[2017-05-23] MEDS: Neutra Phos packet PO SCH ×3 (08:00→21:00)
[2017-05-23 08:58] LABS: ALANINE AMINOTRANSFERASE 43 U/L (12-78); ALBUMIN 1.8 G/DL (3.4-5.0); ALBUMIN/GLOBULIN RATIO 0.4 (1.1-1.5); ALKALINE PHOSPHATASE 85 IU/L (46-116); ANION GAP 10 (8-16); ASPARTATE AMINO TRANSFERASE 37 U/L (10-37); BILIRUBIN,TOTAL 1.4 MG/DL (0.1-1.0); BLOOD UREA NITROGEN 46 MG/DL (7-18); BUN/CREATININE RATIO 22.2 (5.4-32.0); CALCIUM 8.4 MG/DL (8.5-10.1); CHLORIDE 103 MMOL/L (99-107); CREATININE 2.07 MG/DL (0.60-1.10); GLUCOSE 223 MG/DL (70-104); MAGNESIUM 1.9 MG/DL (1.5-2.4); POTASSIUM 4.8 MMOL/L (3.5-5.1); SODIUM 136 MMOL/L (135-145); TOTAL CARBON DIOXIDE 23.5 MMOL/L (24-32); TOTAL PROTEIN 6.2 G/DL (6.4-8.2); eGFR 31 ML/MIN
[2017-05-23 09:29] LABS: BASOPHILS # (AUTO) 0.1 X10'3 (0-0.2); BASOPHILS % (AUTO) 0.4 % (0-1); EOSINOPHILS # (AUTO) 0.3 X10'3 (0-0.9); EOSINOPHILS % (AUTO) 1.5 % (0-6); HEMATOCRIT 37.8 % (42.0-52.0); HEMOGLOBIN 12.7 g/dl (14.0-17.9); LYMPHOCYTES # (AUTO) 0.4 X10'3 (1.1-4.8); LYMPHOCYTES % (AUTO) 2.3 % (21-51); MEAN CORPUSCULAR HEMOGLOBIN 29.8 PG (27.0-31.0); MEAN CORPUSCULAR HGB CONC 33.7 % (33.0-36.5); MEAN CORPUSCULAR VOLUME 88.4 FL (78-98); MEAN PLATELET VOLUME 10.1 FL (7.4-10.4); MONOCYTES # (AUTO) 0.7 X10'3 (0-0.9); MONOCYTES % (AUTO) 4.3 % (2-12); NEUTROPHILS % (AUTO) 91.5 % (42-75); PLATELET COUNT 188 X10'3 (140-440); RED BLOOD COUNT 4.27 X10'6 (4.70-6.10); RED CELL DISTRIBUTION WIDTH 16.2 % (11.5-14.5); WHITE BLOOD COUNT 17.5 X10'3 (4.5-11.0)
[2017-05-23 11:00] VITALS: BP 152/80
[2017-05-23] MEDS: dextrose 5%-water 1,000 ML IV SCH (11:48)
[2017-05-23] MEDS: VANCOMYCIN 750MG IV in NS 250 ML IV SCH (14:46)
[2017-05-23 15:00] VITALS: BP 140/88
[2017-05-23] MEDS: dextrose 5%-1/2 normal saline 1,000 ML IV SCH (18:00)
[2017-05-23 19:00] VITALS: BP 159/75
[2017-05-23] MEDS: insulin glargine (Lantus) pen - multi-dose SQ SCH (21:00)
[2017-05-23] MEDS: atorvastatin 20mg tablet PO SCH (21:00)
[2017-05-23 23:00] VITALS: BP 163/91
[2017-05-24 03:00] VITALS: BP 103/61
[2017-05-24 04:00] VITALS: BP 140/121
[2017-05-24 05:30] VITALS: BP 148/79
[2017-05-24 06:02] LABS: BASOPHILS % (AUTO) 0 % (0-1); EOSINOPHILS # (AUTO) 0.3 X10'3 (0-0.9); HEMOGLOBIN 11.6 g/dl (14.0-17.9); LYMPHOCYTES # (AUTO) 0.3 X10'3 (1.1-4.8); LYMPHOCYTES % (AUTO) 1.9 % (21-51); MEAN CORPUSCULAR HEMOGLOBIN 30.6 PG (27.0-31.0); MEAN CORPUSCULAR HGB CONC 34.2 % (33.0-36.5); MEAN CORPUSCULAR VOLUME 89.5 FL (78-98); MEAN PLATELET VOLUME 10.2 FL (7.4-10.4); MONOCYTES # (AUTO) 0.9 X10'3 (0-0.9); MONOCYTES % (AUTO) 5.4 % (2-12); NEUTROPHILS # (AUTO) 15.6 X10'3 (1.8-7.7); NEUTROPHILS % (AUTO) 90.7 % (42-75); PLATELET COUNT 198 X10'3 (140-440); WHITE BLOOD COUNT 17.2 X10'3 (4.5-11.0)
[2017-05-24 06:30] LABS: ALBUMIN 1.7 G/DL (3.4-5.0); ANION GAP 11 (8-16); BLOOD UREA NITROGEN 46 MG/DL (7-18); CALCIUM 8.3 MG/DL (8.5-10.1); CHLORIDE 102 MMOL/L (99-107); CREATININE 2.09 MG/DL (0.60-1.10); GLUCOSE 156 MG/DL (70-104); POTASSIUM 4.6 MMOL/L (3.5-5.1); SODIUM 133 MMOL/L (135-145); TOTAL CARBON DIOXIDE 20.2 MMOL/L (24-32); eGFR 31 ML/MIN
[2017-05-24] MEDS: dextrose 5%-1/2 normal saline 1,000 ML IV SCH (07:15)
[2017-05-24] MEDS: lactobacillus rhamnosus 10,000 MMU CELLS/CAPSULE PO SCH ×2 (07:54→21:45)
[2017-05-24] MEDS: magnesium Cl slow-release 64mg tablet PO SCH ×2 (07:54→21:45)
[2017-05-24] MEDS: aspirin 81mg tab.chew PO SCH (07:54)
[2017-05-24] MEDS: losartan 50mg tablet PO SCH (07:55)
[2017-05-24] MEDS: clopidogrel 75mg tablet PO SCH (07:55)
[2017-05-24] MEDS: potassium Cl 20 mEq SR tablet PO SCH ×2 (07:55→21:45)
[2017-05-24] MEDS: carVEDilol 3.125mg tablet PO SCH ×2 (07:55→21:46)
[2017-05-24] MEDS: apixaban 2.5mg tablet PO SCH ×2 (07:55→21:45)
[2017-05-24] MEDS: Neutra Phos packet PO SCH ×3 (07:55→21:45)
[2017-05-24] MEDS: K and/or MAG REPLACEMENT MC SCH (08:00)
[2017-05-24 11:00] VITALS: BP 111/51
[2017-05-24] MEDS ORDERED: VANCOMYCIN LEVEL IV ONE (14:30)
[2017-05-24 15:00] VITALS: BP 148/74
[2017-05-24] MEDS: VANCOMYCIN 750MG IV in NS 250 ML IV SCH (15:17)
[2017-05-24] MEDS ORDERED: VANCOMYCIN IV SCH (16:00)
[2017-05-24] MEDS ORDERED: NORMAL SALINE IV SCH (16:00)
[2017-05-24 19:00] VITALS: BP 156/95
[2017-05-24] MEDS: insulin glargine (Lantus) pen - multi-dose SQ SCH (21:00)
[2017-05-24] MEDS: furosemide 20 MG/2 ML vial IV SCH (21:41)
[2017-05-24] MEDS: atorvastatin 20mg tablet PO SCH (21:45)
[2017-05-25 06:00] VITALS: BP 104/48
[2017-05-25 06:45] LABS: BASOPHILS % (AUTO) 0 % (0-1); EOSINOPHILS # (AUTO) 0.3 X10'3 (0-0.9); EOSINOPHILS % (AUTO) 1.9 % (0-6); HEMATOCRIT 30.6 % (42.0-52.0); HEMOGLOBIN 10.2 g/dl (14.0-17.9); LYMPHOCYTES # (AUTO) 0.4 X10'3 (1.1-4.8); LYMPHOCYTES % (AUTO) 2.8 % (21-51); MEAN CORPUSCULAR HEMOGLOBIN 29.8 PG (27.0-31.0); MEAN CORPUSCULAR HGB CONC 33.3 % (33.0-36.5); MEAN CORPUSCULAR VOLUME 89.6 FL (78-98); MEAN PLATELET VOLUME 9.8 FL (7.4-10.4); MONOCYTES % (AUTO) 6.9 % (2-12); NEUTROPHILS % (AUTO) 88.4 % (42-75); PLATELET COUNT 194 X10'3 (140-440); RED BLOOD COUNT 3.41 X10'6 (4.70-6.10); RED CELL DISTRIBUTION WIDTH 16.7 % (11.5-14.5); WHITE BLOOD COUNT 14.7 X10'3 (4.5-11.0)
[2017-05-25 07:10] LABS: ALBUMIN 1.6 G/DL (3.4-5.0); ANION GAP 9 (8-16); BLOOD UREA NITROGEN 49 MG/DL (7-18); BUN/CREATININE RATIO 21.6 (5.4-32.0); CALCIUM 8.2 MG/DL (8.5-10.1); CHLORIDE 106 MMOL/L (99-107); CREATININE 2.27 MG/DL (0.60-1.10); GLUCOSE 88 MG/DL (70-104); POTASSIUM 5.1 MMOL/L (3.5-5.1); SODIUM 136 MMOL/L (135-145); TOTAL CARBON DIOXIDE 21.5 MMOL/L (24-32); eGFR 28 ML/MIN
[2017-05-25] MEDS: carVEDilol 3.125mg tablet PO SCH ×2 (07:11→19:46)
[2017-05-25] MEDS: Neutra Phos packet PO SCH ×3 (07:11→21:00)
[2017-05-25] MEDS: potassium Cl 20 mEq SR tablet PO SCH ×2 (07:11→19:26)
[2017-05-25] MEDS: lactobacillus rhamnosus 10,000 MMU CELLS/CAPSULE PO SCH ×2 (07:11→19:46)
[2017-05-25] MEDS: losartan 50mg tablet PO SCH (07:11)
[2017-05-25] MEDS: clopidogrel 75mg tablet PO SCH (07:11)
[2017-05-25] MEDS: magnesium Cl slow-release 64mg tablet PO SCH ×2 (07:11→19:27)
[2017-05-25] MEDS: furosemide 20 MG/2 ML vial IV SCH ×2 (07:11→19:45)
[2017-05-25] MEDS: apixaban 2.5mg tablet PO SCH ×2 (07:11→19:46)
[2017-05-25] MEDS: aspirin 81mg tab.chew PO SCH (07:11)
[2017-05-25] MEDS ORDERED: morphine 4 MG/ML inj SYRINge IV PRN (07:40)
[2017-05-25] MEDS: K and/or MAG REPLACEMENT MC SCH (08:00)
[2017-05-25 09:45] LABS: VANCOMYCIN,RANDOM 25.5 UG/ML
[2017-05-25 11:00] VITALS: BP 100/60
[2017-05-25] MEDS ORDERED: dextrose 5%-1/2 normal saline 1,000 ML IV SCH (11:00)
[2017-05-25 15:00] VITALS: BP 135/68
[2017-05-25] MEDS: VANCOMYCIN IV SCH (16:54)
[2017-05-25] MEDS: NORMAL SALINE IV SCH (16:54)
[2017-05-25 19:00] VITALS: BP 141/76
[2017-05-25] MEDS: insulin glargine (Lantus) pen - multi-dose SQ SCH (19:27)
[2017-05-25] MEDS: atorvastatin 20mg tablet PO SCH (21:00)
[2017-05-25 23:00] VITALS: BP 170/69
[2017-05-26] VITALS (7 sets, daily range): BP systolic 119–171; BP diastolic 64–91
[2017-05-26 05:52] LABS: BASOPHILS % (AUTO) 0 % (0-1); EOSINOPHILS # (AUTO) 0.2 X10'3 (0-0.9); EOSINOPHILS % (AUTO) 1.7 % (0-6); LYMPHOCYTES # (AUTO) 0.4 X10'3 (1.1-4.8); LYMPHOCYTES % (AUTO) 3.1 % (21-51); MEAN CORPUSCULAR HGB CONC 33.2 % (33.0-36.5); MEAN CORPUSCULAR VOLUME 90.5 FL (78-98); MONOCYTES # (AUTO) 0.8 X10'3 (0-0.9); MONOCYTES % (AUTO) 6.2 % (2-12); NEUTROPHILS # (AUTO) 11.1 X10'3 (1.8-7.7); PLATELET COUNT 252 X10'3 (140-440); RED BLOOD COUNT 3.65 X10'6 (4.70-6.10); RED CELL DISTRIBUTION WIDTH 16.8 % (11.5-14.5); WHITE BLOOD COUNT 12.4 X10'3 (4.5-11.0)
[2017-05-26 06:52] LABS: ALBUMIN 1.7 G/DL (3.4-5.0); ANION GAP 14 (8-16); BLOOD UREA NITROGEN 54 MG/DL (7-18); BUN/CREATININE RATIO 21.3 (5.4-32.0); CALCIUM 8.4 MG/DL (8.5-10.1); CHLORIDE 102 MMOL/L (99-107); CREATININE 2.53 MG/DL (0.60-1.10); GLUCOSE 156 MG/DL (70-104); POTASSIUM 5.2 MMOL/L (3.5-5.1); SODIUM 136 MMOL/L (135-145); TOTAL CARBON DIOXIDE 20.5 MMOL/L (24-32); eGFR 25 ML/MIN
[2017-05-26 07:51] LABS: LARGE PLATELETS FEW; PLATELET ESTIMATE NORMAL
[2017-05-26] MEDS: potassium Cl 20 mEq SR tablet PO SCH (08:00)
[2017-05-26] MEDS: K and/or MAG REPLACEMENT MC SCH (08:00)
[2017-05-26] MEDS: aspirin 81mg tab.chew PO SCH (08:00)
[2017-05-26] MEDS: magnesium Cl slow-release 64mg tablet PO SCH ×2 (08:00→20:00)
[2017-05-26] MEDS: Neutra Phos packet PO SCH ×3 (08:00→21:00)
[2017-05-26] MEDS ORDERED: sodium polystyrene sulfonate 15gm/60ml oral suspension PO ONE (09:55)
[2017-05-26] MEDS: apixaban 2.5mg tablet PO SCH ×2 (10:08→20:00)
[2017-05-26] MEDS: carVEDilol 3.125mg tablet PO SCH ×2 (10:08→20:00)
[2017-05-26] MEDS: clopidogrel 75mg tablet PO SCH (10:08)
[2017-05-26] MEDS: lactobacillus rhamnosus 10,000 MMU CELLS/CAPSULE PO SCH ×2 (10:09→20:00)
[2017-05-26] MEDS: NORMAL SALINE IV SCH (17:37)
[2017-05-26] MEDS: VANCOMYCIN IV SCH (17:37)
[2017-05-26] MEDS: atorvastatin 20mg tablet PO SCH (21:48)
[2017-05-27 06:00] VITALS: BP 166/66
[2017-05-27 06:23] LABS: BASOPHILS # (AUTO) 0.1 X10'3 (0-0.2); BASOPHILS % (AUTO) 1.1 % (0-1); EOSINOPHILS # (AUTO) 0.2 X10'3 (0-0.9); EOSINOPHILS % (AUTO) 2.1 % (0-6); HEMATOCRIT 31.7 % (42.0-52.0); HEMOGLOBIN 10.6 g/dl (14.0-17.9); LYMPHOCYTES # (AUTO) 0.5 X10'3 (1.1-4.8); LYMPHOCYTES % (AUTO) 4.4 % (21-51); MEAN CORPUSCULAR HEMOGLOBIN 29.7 PG (27.0-31.0); MEAN CORPUSCULAR HGB CONC 33.5 % (33.0-36.5); MEAN CORPUSCULAR VOLUME 88.7 FL (78-98); MEAN PLATELET VOLUME 9.5 FL (7.4-10.4); MONOCYTES # (AUTO) 0.8 X10'3 (0-0.9); MONOCYTES % (AUTO) 7.6 % (2-12); NEUTROPHILS % (AUTO) 84.8 % (42-75); PLATELET COUNT 268 X10'3 (140-440); RED BLOOD COUNT 3.57 X10'6 (4.70-6.10); RED CELL DISTRIBUTION WIDTH 16.7 % (11.5-14.5); WHITE BLOOD COUNT 10.6 X10'3 (4.5-11.0)
[2017-05-27 07:21] LABS: ALBUMIN 1.7 G/DL (3.4-5.0); ANION GAP 12 (8-16); BLOOD UREA NITROGEN 58 MG/DL (7-18); BUN/CREATININE RATIO 22.2 (5.4-32.0); CALCIUM 8.2 MG/DL (8.5-10.1); CHLORIDE 107 MMOL/L (99-107); CREATININE 2.61 MG/DL (0.60-1.10); GLUCOSE 123 MG/DL (70-104); SODIUM 141 MMOL/L (135-145); TOTAL CARBON DIOXIDE 21.8 MMOL/L (24-32); eGFR 24 ML/MIN
[2017-05-27] MEDS: apixaban 2.5mg tablet PO SCH (07:44)
[2017-05-27] MEDS: carVEDilol 3.125mg tablet PO SCH (07:44)
[2017-05-27] MEDS: clopidogrel 75mg tablet PO SCH (07:44)
[2017-05-27] MEDS: lactobacillus rhamnosus 10,000 MMU CELLS/CAPSULE PO SCH ×2 (07:44→20:28)
[2017-05-27] MEDS: Neutra Phos packet PO SCH ×2 (07:44→13:00)
[2017-05-27] MEDS: magnesium Cl slow-release 64mg tablet PO SCH (07:44)
[2017-05-27] MEDS: K and/or MAG REPLACEMENT MC SCH (07:51)
[2017-05-27] MEDS ORDERED: furosemide 40 MG/4 ML oral solution UD cup PO SCH (08:00)
[2017-05-27 10:00] VITALS: BP 172/73
[2017-05-27] MEDS ORDERED: VANCOMYCIN LEVEL IV ONE (16:30)
[2017-05-27] MEDS: VANCOMYCIN IV SCH (17:07)
[2017-05-27] MEDS: NORMAL SALINE IV SCH (17:07)
[2017-05-27] MEDS ORDERED: LORazepam 0.5 MG tablet PO PRN (18:30)
[2017-05-27] MEDS ORDERED: atropine sulfate 1% ophthalmic drops SL PRN (18:30)
[2017-05-27] MEDS ORDERED: LORazepam 2 mg/ml vial IV PRN (18:30)
[2017-05-27] MEDS ORDERED: morphine ORAL 5MG/0.25 ML (Conc. morphine) oral syringe PO PRN (18:30)
[2017-05-27] MEDS ORDERED: LORazepam 1 MG tablet PO PRN (18:30)
[2017-05-27] MEDS ORDERED: morphine 10mg/0.5ml (conc. morphine) oral syringe PO PRN (18:33)
[2017-05-27 18:44] VITALS: BP 185/97
[2017-05-28] MEDS: lactobacillus rhamnosus 10,000 MMU CELLS/CAPSULE PO SCH (08:00)
[2017-05-28 08:01] VITALS: BP 164/87
[2017-05-28] MEDS ORDERED: LORazepam 0.5 MG tablet PO PRN (16:15)
[2017-05-28] MEDS ORDERED: ondansetron 4mg rapidly disintigrating tab PO PRN (16:15)
== END 2017-05-28 21:55 | disposition expired | DRG 871 ==
LOC: ER 05:02 → ED HOLD 07:25 → EDBEDREQ 08:34 → PCU 3S 09:45 → ORTHO 4S 05-26 21:19
PROVIDERS: ADMIT Family Medicine; ATTEND Family Medicine
DX: A41.02 Sepsis due to Methicillin resistant Staphylococcus aureus (principal); G93.40 Encephalopathy, unspecified; I21.4 Non-ST elevation (NSTEMI) myocardial infarction; I47.2 Ventricular tachycardia; E87.3 Alkalosis; J18.9 Pneumonia, unspecified organism; E11.22 Type 2 diabetes mellitus with diabetic chronic kidney disease; D69.6 Thrombocytopenia, unspecified; N17.9 Acute kidney failure, unspecified; I13.0 Hypertensive heart and chronic kidney disease with heart failure and stage 1 through stage 4 chronic kidney disease, or unspecified chronic kidney disease; I50.22 Chronic systolic (congestive) heart failure; E87.0 Hyperosmolality and hypernatremia; I42.9 Cardiomyopathy, unspecified; F03.91 Unspecified dementia, unspecified severity, with behavioral disturbance; E87.1 Hypo-osmolality and hyponatremia; E11.65 Type 2 diabetes mellitus with hyperglycemia; I48.91 Unspecified atrial fibrillation; N18.9 Chronic kidney disease, unspecified; E78.00 Pure hypercholesterolemia, unspecified; I25.10 Atherosclerotic heart disease of native coronary artery without angina pectoris; E86.0 Dehydration; E87.5 Hyperkalemia; N28.1 Cyst of kidney, acquired; Z51.5 Encounter for palliative care; Z66 Do not resuscitate; I25.2 Old myocardial infarction; Z95.1 Presence of aortocoronary bypass graft; Z95.5 Presence of coronary angioplasty implant and graft; Z79.84 Long term (current) use of oral hypoglycemic drugs; Z79.01 Long term (current) use of anticoagulants; Z79.899 Other long term (current) drug therapy; Z86.73 Personal history of transient ischemic attack (TIA), and cerebral infarction without residual deficits; Z87.891 Personal history of nicotine dependence
CPT/HCPCS: 36415; 36600; 70450; 71045; 71250; 74176; 80048; 80053; 80061; 80202; 80305; 80320; 80329; 81001; 82550; 82553; 82803; 82948; 83605; 83735; 83880; 84100; 84439; 84443; 84484; 85018; 85025; 85610; 85730; 87040; 87070; 87077; 87186; 92616; 93005; 93308; 97110; 97116; 97162; 97530; 99291; A4620; A6212; A6213; A6250; J0360; J0696; J1644; J1815; J1940; J2060; J3370; J7030; J7070